=== PATIENT | female | born 1970 | race Hispanic/Latino ===

== ENCOUNTER → 2016-06-02 | Outpatient (CLI) | payer OTHER ==
[2016-06-02 10:00] LABS: INR 0.89
[2016-06-02 10:06] LABS: BLOOD UREA NITROGEN 15 MG/DL (7-18); CREATININE FOR GFR 0.65 MG/DL (0.55-1.02); GLOMERULAR FILTRATION RATE > 60.0 (>58)
== END ==
LOC: M LAB 08:52
PROVIDERS: ATTEND Physical Medicine & Rehabilitation
DX: M51.27 Other intervertebral disc displacement, lumbosacral region (principal)

== ENCOUNTER → 2016-12-07 | Outpatient (CLI) | payer OTHER ==
[2016-12-07 13:16] LABS: FREE T4 1.43 NG/DL (0.76-1.46)
== END ==
LOC: M LAB 11:44
PROVIDERS: ATTEND Internal Medicine Endocrinology, Diabetes & Metabolism
DX: E89.0 Postprocedural hypothyroidism (principal)

== ENCOUNTER → 2016-12-07 | Outpatient (CLI) | payer OTHER ==
[2016-12-07 13:07] LABS: BLOOD UREA NITROGEN 12 MG/DL (7-18); CREATININE FOR GFR 0.73 MG/DL (0.55-1.02); GLOMERULAR FILTRATION RATE > 60.0 (>58)
== END ==
LOC: M LAB 11:41
PROVIDERS: ATTEND Physical Medicine & Rehabilitation
DX: M47.817 Spondylosis without myelopathy or radiculopathy, lumbosacral region (principal)

== ENCOUNTER → 2017-04-28 | Outpatient (REF) | payer OTHER ==
[2017-04-28 12:33] LABS: BLOOD UREA NITROGEN 14 MG/DL (7-18); CREATININE FOR GFR 0.75 MG/DL (0.55-1.02); GLOMERULAR FILTRATION RATE > 60.0 (>58)
== END ==
LOC: M LABDRAW1 09:33
PROVIDERS: ATTEND Physical Medicine & Rehabilitation
DX: M25.551 Pain in right hip (principal)

== ENCOUNTER → 2017-07-22 | Outpatient (REF) | payer OTHER ==
[2017-07-22 15:36] LABS: PLATELET COUNT, AUTOMATED 298 10^3/uL (150-450)
[2017-07-22 15:48] LABS: INR 1.01; PROTHROMBIN TIME 13.4 SECONDS (12.4-14.5)
[2017-07-22 15:49] LABS: PARTIAL THROMBOPLASTIN TIME 27.7 SECONDS (26.8-37.9)
== END ==
LOC: M LABDRAW1 14:24
DX: Z01.812 Encounter for preprocedural laboratory examination (principal)

== ENCOUNTER → 2017-12-09 | Outpatient (REF) | payer OTHER ==
[2017-12-09 13:01] LABS: THYROID STIMULATING HORMONE 0.292 uIU/ML (0.358-3.740)
[2017-12-09 13:01] LABS: FREE T4 1.08 NG/DL (0.76-1.46)
== END ==
LOC: M LABDRAW1 10:39
DX: E89.0 Postprocedural hypothyroidism (principal)

== ENCOUNTER → 2018-03-01 | Outpatient (REF) | payer OTHER ==
[2018-03-01 17:03] LABS: FREE T4 1.09 NG/DL (0.76-1.46)
== END ==
LOC: M LABDRAW1 13:42
DX: E89.0 Postprocedural hypothyroidism (principal)
CPT/HCPCS: 84443

== ENCOUNTER → 2018-08-15 | Outpatient (CLI) | payer OTHER ==
[2018-08-18 14:19] LABS: HPV LOW VOL RFLX Positive (Negative)
== END ==
LOC: M SMT 09:59
PROVIDERS: ATTEND Obstetrics & Gynecology
DX: Z80.49 Family history of malignant neoplasm of other genital organs (principal)
CPT/HCPCS: 36415; 87624; G0123

== ENCOUNTER → 2018-08-17 | Outpatient (CLI) | payer OTHER ==
--- NOTE | 2018-08-17 16:04 | REP ---
CERVICAL SPINE, NINE VIEWS: HISTORY: Neck pain. The cervical spine is visualized from C1 to the C6-7 level in the lateral radiographs. There is no acute fracture or subluxation. The C3-4 through C5-6 intervertebral discs are decreased in height consistent with disc degeneration. Osteophytes are present on C4 through C6. There is narrowing of the right C5 and left C4 and C5 neural foramina secondary to uncinate process hypertrophy. IMPRESSION: Degenerative change as described above. Electronically Signed by Hemant Jesus MD 08/17/2018 04:06 P
== END ==
LOC: M LRY 15:16
PROVIDERS: ATTEND Nurse Practitioner Family
DX: M50.31 Other cervical disc degeneration, high cervical region (principal); M50.321 Other cervical disc degeneration at C4-C5 level; M50.322 Other cervical disc degeneration at C5-C6 level; M25.78 Osteophyte, vertebrae

== ENCOUNTER → 2018-08-17 | Outpatient (REF) | payer OTHER ==
[2018-08-17 12:01] LABS: HEMATOCRIT 41.5 % (36.0-47.0); HEMOGLOBIN 13.2 g/dl (12.0-15.5); MEAN CORPUSCULAR HEMOGLOBIN 29.5 pg (27.0-33.0); MEAN CORPUSCULAR HGB CONC 31.8 g/dl (32.0-36.5); MEAN CORPUSCULAR VOLUME 92.8 fl (80.0-96.0); PLATELET COUNT, AUTOMATED 308 10^3/uL (150-450); RED BLOOD COUNT 4.47 10^6/uL (4.00-5.40); WHITE BLOOD COUNT 6.1 10^3/uL (4.0-10.0)
[2018-08-17 12:38] LABS: ALBUMIN 3.8 GM/DL (3.2-5.2); ALT/SGPT 15 U/L (12-78); BILIRUBIN,TOTAL 0.4 MG/DL (0.2-1.0); BLOOD UREA NITROGEN 13 MG/DL (7-18); CALCIUM LEVEL 8.6 MG/DL (8.5-10.1); CARBON DIOXIDE LEVEL 28 MEQ/L (21-32); CHLORIDE LEVEL 107 MEQ/L (98-107); CHOLESTEROL LEVEL 220 MG/DL (<200); CHOLESTEROL RISK RATIO 3.333 (<5); CREATININE FOR GFR 0.86 MG/DL (0.55-1.30); GLOMERULAR FILTRATION RATE > 60.0 (>58); GLUCOSE, FASTING 77 MG/DL (70-100); HDL CHOLESTEROL 66 MG/DL (>40); LDL CHOLESTEROL 140 MG/DL (<100); NON-HDL-C 154 MG/DL; POTASSIUM SERUM 4.4 MEQ/L (3.5-5.1); SODIUM LEVEL 141 MEQ/L (136-145); TOTAL PROTEIN 7.2 GM/DL (6.4-8.2); TRIGLYCERIDES LEVEL 68 MG/DL (<150)
== END ==
LOC: M SFHCPLAZ 09:17
PROVIDERS: ATTEND Nurse Practitioner Family
DX: Z00.00 Encounter for general adult medical examination without abnormal findings (principal); Z13.220 Encounter for screening for lipoid disorders; E89.0 Postprocedural hypothyroidism

== ENCOUNTER → 2018-09-12 | Outpatient (REF) | payer OTHER | LOC: M SFHCPLAZ 11:50 | PROVIDERS: ATTEND Nurse Practitioner Family | DX: L02.412 Cutaneous abscess of left axilla (principal) ==

== ENCOUNTER → 2018-09-21 | Outpatient (CLI) | payer OTHER ==
[2018-09-21 20:40] LABS: ALBUMIN 3.6 GM/DL (3.2-5.2); ALT/SGPT 14 U/L (12-78); BILIRUBIN,DIRECT < 0.1 MG/DL (0.0-0.2); BILIRUBIN,TOTAL 0.3 MG/DL (0.2-1.0); TOTAL PROTEIN 7.3 GM/DL (6.4-8.2)
== END ==
LOC: M LRY 15:21
PROVIDERS: ATTEND Podiatrist
DX: Z79.899 Other long term (current) drug therapy (principal)

== ENCOUNTER → 2018-10-11 | Outpatient (CLI) | payer OTHER ==
[2018-10-11 21:04] LABS: FREE T4 1.07 NG/DL (0.76-1.46); THYROID STIMULATING HORMONE 3.98 uIU/ML (0.358-3.740)
== END ==
LOC: M LRY 15:22
PROVIDERS: ATTEND Internal Medicine Endocrinology, Diabetes & Metabolism
DX: E89.0 Postprocedural hypothyroidism (principal)

== ENCOUNTER → 2018-11-30 | Outpatient (CLI) | payer OTHER ==
[2018-11-30 21:19] LABS: ALT/SGPT 17 U/L (12-78)
[2018-11-30 21:20] LABS: ALBUMIN 3.6 GM/DL (3.2-5.2); BILIRUBIN,DIRECT < 0.1 MG/DL (0.0-0.2); BILIRUBIN,TOTAL 0.2 MG/DL (0.2-1.0); TOTAL PROTEIN 6.9 GM/DL (6.4-8.2)
== END ==
LOC: M LRY 14:19
PROVIDERS: ATTEND Podiatrist
DX: Z79.899 Other long term (current) drug therapy (principal)

== ENCOUNTER → 2018-12-01 | Outpatient (CLI) | payer OTHER ==
--- NOTE | 2018-12-12 01:34 | ECWPNPC ---
PATIENT NAME: GLADYS LEBRON : 1970 GENDER: FEMALE VISIT DATE: 12/01/2018 DISCHARGE DATE: 12/01/18 1211 VISIT LOCKED DATE TIME: PHYSICIAN: JEREMY SUAZO MD RESOURCE: JEREMY SUAZO MD REASON FOR APPOINTMENT 1. NECK PAIN HISTORY OF PRESENT ILLNESS PAIN SCREENING: PATIENT HAS A COMPLAINT OF ACUTE OR CHRONIC PAIN :YES 48 YEAR OLD FEMALE PATIENT WITH A HISTORY OF CHRONIC NECK PAIN. THE PATIENT DESCRIBES THE PAIN ACHING, STABBING, SHOOTING, AND CONTINUOUS WITH A PAIN SCORE OF 7-10/10 DEPENDING ON PHYSICAL ACTIVITY. THE PATIENT SAYS HER PAIN STARTS IN HER NECK AREA AND GOES UP INTO HER HEAD CAUSING HEADACHES. THE PATIENT SAYS SHE HAS SOME OCCASIONAL PAIN AND NUMBNESS DOWN HER ARMS WELL. THE PATIENT SAYS HER PAIN HAS BEEN GOING ON FOR ABOUT 6 MONTHS. THE PATIENT SAYS SHE HAS DIFFICULTY DOING DAILY ACTIVITIES SUCH COOKING AND CLEANING DUE TO THIS PAIN. PATIENT DENIES UNEXPLAINABLE WEIGHT LOSS, FEVER, CHILLS, NEW CHANGES ON HER URINARY OR BOWEL CONTROL. FALL RISK SCREENING: SCREENING :NO FALLS REPORTED IN THE LAST YEAR CURRENT MEDICATIONS TAKING DULOXETINE HCL 30 MG CAPSULE DELAYED RELEASE PARTICLES ORAL BID TAKING CYCLOBENZAPRINE HCL 5 MG TABLET ORAL TAKING NAPROSYN 500 MG TABLET 1 TABLET WITH FOOD OR MILK NEEDED ORALLY EVERY 12 HRS TAKING LEVOTHYROXINE SODIUM 112 MCG TABLET ORALLY , NOTES: MANAGED BY ENDOCRINE TAKING TERBINAFINE- ORAL-12 WEEKS 250 MG TABLETS ONE TABLET ORALLY DAILY NOT-TAKING PREMARIN 0.625 MG TABLET ORAL NOT-TAKING TRAMADOL HCL 50 MG TABLET ORAL NOT-TAKING DOXYCYCLINE MONOHYDRATE 100 MG TABLET 1 TABLET ORALLY EVERY 12 HRS MEDICATION LIST REVIEWED AND RECONCILED WITH THE PATIENT PAST MEDICAL HISTORY SPONDYLOLITHESIS SPINAL STENOSIS THYROID CANCER 2008- SX FOR REMOVAL 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 SURGICAL HISTORY THYROIDECTOMY 2008 PARTIAL HYSTERECTOMY- PA 1998 FAMILY HISTORY FATHER: ALIVE 72 YRS, HTN, ARTHRITIS, DIAGNOSED WITH DIABETES MOTHER: ALIVE 71 YRS, HYPOTHYROIDISM, DEPRESSION, HTN SIBLINGS: ALIVE 51 YRS, OBESITY SON(S): ALIVE, ADHD DAUGHTER(S): ALIVE PATERNAL GRAND FATHER: 60 YRS, ALCOHOLISM PATERNAL GRAND MOTHER: 70 YRS, CANCER MATERNAL GRAND FATHER: 70 YRS, TYPE II DIABETES, HTN, MULTIPLE STROKES, DIABETES MATERNAL GRAND MOTHER: 40 YRS, OVARIAN CANCER, 1 SISTER(S) . 2 SON(S) , 2 DAUGHTER(S) . PT REPORTS STRONG FAMILY HISTORY OF COLON CANCER. \NPT REPORTS STRONG FAMIY HISTORY OF DM ON MOTHER SIDE. SOCIAL HISTORY GENERAL: TOBACCO USE ARE YOU A:CURRENT SMOKER HOW OFTEN DO YOU SMOKE CIGARETTES?EVERY DAY HOW SOON AFTER YOU WAKE UP DO YOU SMOKE YOUR FIRST CIGARETTE?AFTER 60 MIN HOW MANY CIGARETTES A DAY DO YOU SMOKE?5 OR LESS ARE YOU INTERESTED IN QUITTING?READY TO QUIT PATIENT COUNSELED ON THE DANGERS OF TOBACCO USE AND URGED TO QUIT:08/15/2018 COUNSELED THE PATIENT ON TOBACCO USE, CESSATION [id number]/02/2019 PREVIOUS QUIT ATTEMPTS?YES, WITHIN THE LAST 6 MONTHS. HIV / HEP-C SCREENING HIV TEST OFFERED TO PATIENT:YES DATE OFFERED:08/15/2018 TEST ACCEPTED:NO HEP-C TEST OFFERED TO PATIENT:YES DATE OFFERED:08/15/2018 REASON:PATIENT DECLINED TEST ACCEPTED:NO REASON:PATIENT DECLINED BROCHURE PROVIDED TO PATIENTYES OTHERS AT HOME: . EDUCATION LEVEL OF EDUCATION:COLLEGE DIET: REGULAR. LANGUAGE LANGUAGES SPOKEN:BOTH SLOVENIAN AND ENGLISH DOMESTIC VIOLENCE DO YOU FEEL SAFE IN YOUR ENVIRONMENT?YES RECREATIONAL DRUG USE DRUG USE?NO LEARNING BARRIERS / SPECIAL NEEDS BARRIERS TO LEARNING?NO HEARING IMPAIRED?NO VISION IMPAIRED?YES COGNITIVELY IMPAIRED?NO :CORRECTIVE LENSES READINESS TO LEARN?YES LEARNING PREFERENCES?NO LEARNING CAPABILITIES PRESENT?YES PAIN CLINIC PFS, CLERGY, PUBLIC HEALTH REFERRALS HAS THE PATIENT BEEN EDUCATED REGARDING HIS/HER PLAN OF CARE?YES HAS THE PATIENT BEEN EDUCATED REGARDING PAIN, THE RISK FOR PAIN, THE IMPORTANCE OF EFFECTIVE PAIN MANAGEMENT, AND THE PAIN ASSESSMENT PROCESS?YES LATEX QUESTIONNAIRE LATEX ALLERGY : HAVE YOU EVER DEVELOPED ANY TYPE OF REACTION AFTER HANDLING LATEX PRODUCTS SUCH RUBBER GLOVES, CONDOMS, DIAPHRAGMS, BALLOONS, SOCKS, OR UNDERWEAR?NO LATEX ALLERGY : HAVE YOU EVER DEVELOPED ANY TYPE OF REACTION DURING OR AFTER DENTAL APPOINTMENT, VAGINAL/RECTAL EXAMINATION, SURGICAL PROCEDURE, OR ANY OTHER EXPOSURE?NO DATE ASKED : 08/15/2018 LATEX RISK : HAVE YOU EVER HAD ANY DIFFICULTY BREATHING OR HIVES AFTER EATING OR HANDLING ANY FRUITS, OR VEGETABLES; SUCH KIWI, BANANAS, STONE FRUITS, OR CHESTNUTSNO LATEX RISK : DO YOU HAVE A PREVIOUS PERSONAL HISTORY OF MORE THAN NINE SURGERIES, SPINA BIFIDA, OR REPEATED CATHERIZATIONS? NO LATEX RISK : ARE YOU FREQUENTLY EXPOSED TO LATEX PRODUCTS IN YOUR OCCUPATION?NO CAFFEINE CAFFEINE USE?YES 2 CUPS COFFEE DAILY ADVANCE DIRECTIVE ADVANCE DIRECTIVE DISCUSSED WITH PATIENT:YES PT DOES NOT HAVE HCP AND DECLINES ASSISTANCE WITH FORM TODAY. 12/01/18 BV ISLAM [id number] RELIGION MARITAL STATUS: . OCCUPATION: FT [employer]. SEXUAL HX HAD SEX IN THE LAST 12 MONTHS (VAGINAL, ORAL, OR ANAL)?YES WITHMEN ONLY PREVENTION STRATEGIES DISCUSSED:OTHER USE PROTECTION?NO LMP:1998 HAVE YOU EVER HAD AN STD?NO REVIEWED WITH PT 12/01/18 1116 BV. HOSPITALIZATION/MAJOR DIAGNOSTIC PROCEDURE THYROID ISSUES PRIOR TO SX REVIEW OF SYSTEMS REVIEWED BY: PROVIDER: JEREMY SUAZO MD . CONSTITUTIONAL: ANY CHANGE IN YOUR MEDICAL CONDITION? NO . CHILLS NO . FEVER NO . INFECTION: DO YOU HAVE NEW INFECTIONS? NO . DO YOU HAVE HISTORY OF MRSA? NO . MUSCULOSKELETAL: ANY NEW PATTERNS OF PAIN OR NUMBNESS? NO . SYTEMIC LUPUS NO . GASTROENTEROLOGY: ANY NEW CHANGE IN BOWEL CONTROL? NO . BARRETTS ESOPHAGUS NO . CIRRHOSIS NO . HEPATITIS NO . LIVER FAILURE NO . ACID REFLUX NO . UNEXPLAINED WEIGHT LOSS NO . GENITOURINARY: ANY NEW CHANGE IN BLADDER CONTROL? NO . IS THERE A CHANCE YOU COULD BE ? NO . HEMATOLOGY/LYMPH: DO YOU TAKE ANY BLOOD THINNERS? (FOR EXAMPLE- COUMADIN, PLAVIX, AGGRENOX, PLATEL, PRADAXA, OR XARELTO) NO . WHEN WAS YOUR LAST DOSE? DATE: TIME: . LOW PLATELET COUNT NO . SICKLE CELL DISEASE NO . VON WILLIEBRANDS NO . FACTOR V LEIDEN NO . THALLASEMIA NO . ANEMIA NO . EASY BRUISING NO . NEUROLOGY: HAVE YOU FALLEN IN THE PAST 12 MONTHS? YES, PT HAD A FALL IN JUNE DUE TO WEAKNESS, FELL ONTO LEFT KNEE AND WAS TREATED AT URGENT CARE . ANY NEW EXTREMITY NUMBNESS OR WEAKNESS? NO . HEAD INJURY NO . DEMENTIA NO . CEREBRAL PALSY NO . MULTIPLE SCLEROSIS NO . DIZZINESS NO . HEADACHE PT COMPLAINS OF CONSTANT HEADACHES THAT VARY IN INTENSITY, AND PROGRESS TO MIGRAINES AT LEAST 1-2 TIMES A WEEK . STROKES NO . VERTIGO OCCASIONALLY, USUALLY WHEN LYING DOWN AND TURNING HEAD TO THE SIDE . CARDIOLOGY: DO YOU HAVE A PACEMAKER OR DEFIBRILLATOR? NO . ANGINA NO . HEART ATTACK NO . HEART SURGERY NO . CONGESTIVE HEART FAILURE/FLUID OVERLOAD NO . CHEST PAIN NO . HIGH BLOOD PRESSURE NO . RESPIRATORY: HAVE YOU BEEN SICK IN THE PAST WEEK? NO . FEVER NO . FLU LIKE SYMPTOMS? NO . CPAP NO . BYPAP NO . ASTHMA NO . EMPHYSEMA NO . CHRONIC LUNG DISEASES NO . SHORTNESS OF BREATH ON EXERTION NO . COUGH NO . SNORING NO . INTEGUMENTARY: DO YOU HAVE ANY RASHES OR OPEN SORES? NO . ALLERGIC/IMMUNO: ARE YOU ALLERGIC TO IV DYE? NO . ANY NEW ALLERGIES? NO . PSYCHIATRIC: DO YOU HAVE THOUGHTS OF HURTING YOURSELF OR SOMEONE ELSE? NO . ARE YOU ABUSED, NEGLECTED, OR IN AN UNSAFE ENVIRONMENT? NO . ENDOCRINOLOGY: ARE YOU DIABETIC? NO . THYROID DISORDER HYPOTHYROID . OTHER: DO YOU NEED ANY PRESCRIPTIONS? NO . IF YES, PLEASE LIST: ____ . ANY NEW PROBLEMS WITH YOUR MEDICATIONS? NO . WHEN DID YOU LAST EAT? ____ . WHEN DID YOU LAST DRINK? ____ . WHAT DID YOU LAST DRINK? ____ . NAME OF PERSON DRIVING YOU HOME? ____ . DO YOU HAVE ANY OTHER QUESTIONS OR CONCERNS NO . VITAL SIGNS WT 230.8 LBS, HT 64 IN, BMI 39.61 INDEX, BP 142/88 MM HG, HR 75 /MIN, RR 18 /MIN, TEMP 97.2 F, OXYGEN SAT % 98%, NA INITIALS SC 10:51, REVIEWED BY: BV. EXAMINATION GENERAL EXAMINATION: PATIENT IS ALERT O X 3 AND COOPERATIVE. LUNGS CLEAR, TO AUSCULTATION. HEART: NO MURMURS OR GALLOPS; FACIAL CRANIAL NERVES ARE GROSSLY NORMAL. GOOD SYMMETRY OF FACIAL MUSCLE MOVEMENT. NORMAL VISUAL MARADIAGA. PATIENT IS LIMPING FROM HER LEFT LEG. PATIENT CAN ABDUCT THE UPPER EXTREMITIES TO ABOVE THE SHOULDER LEVEL. RIGHT ARM IS WEAKER AT EXTENSION AND FLEXION. HAND NEW ACCOUNTS BANKING REPRESENTATIVE OVER THE RIGHT SIDE IS REDUCED. PAIN INCREASES OVER THE CERVICAL FACET JOINTS WITH EXTENSION AND LATERAL ROTATION. X-RAY OF THE CERVICAL SPINE DONE ON 08/17/2018 SHOWS DEGENERATIVE CHANGES. ASSESSMENTS NECK PAIN - M54.2 (PRIMARY) SPONDYLOSIS OF CERVICAL REGION WITHOUT MYELOPATHY OR RADICULOPATHY - M47.812 TREATMENT NECK PAIN CLINICAL NOTES: WE DISCUSSED SEVERAL ISSUES WITH MRS. LEBRON'S PAIN MANAGEMENT CASE. THE CERVICAL X-RAY IS NOT GIVING ME ENOUGH INFORMATION AND I WOULD LIKE TO VIEW THE SOFT TISSUES, SO I WILL ORDER A CERVICAL MRI TO GET A BETTER IDEA OF WHERE THE PATIENT'S PAIN IS COMING FROM. THE PATIENT WILL FOLLOW UP IN 2 WEEKS TO REVIEW THE MRI. INSTRUCTIONS WERE GIVEN, QUESTIONS WERE ANSWERED, PATIENT REPORTS UNDERSTANDING AND AGREES WITH THE PLAN. I, JAMIL PELAYO, DOCUMENTED THE ABOVE INFORMATION ACTING A SCRIBE FOR DR. SUAZO. I HAVE REVIEWED THE ABOVE DOCUMENT, WRITTEN BY JAMIL LUGOIBJemma AND I VERIFY THAT IT IS ACCURATE. DEAR JUDI TURK, INFORMATION TECHNOLOGY SECURITY ANALYST-:THANK YOU FOR YOUR KIND REFERRAL OF MRS. LEBRON. IF YOU WANT TO DISCUSS HER CASE WITH ME PLEASE CALL ME AT THE PAIN CENTER AT [phone]. SINCERELY,JEREMY SUAZO, [facility] . PROCEDURE CODES FA211 ESTABILISHED PATIENT [facility] FACILITY CHARGE G8427 CURRENT MEDS W/DOSAGES DOCUMENTED G8730 PAIN ASSESS POS TOOL F/U PLAN DOC DISPOSITION & COMMUNICATION FOLLOW UP 2 WEEKS- OKAY TO OVERBOOK (REASON: NECK PAIN- REVIEW MRI) ELECTRONICALLY SIGNED BY JEREMY SUAZO MD, MD ON 12/11/2018 AT 04:13 PM EDT DISCLAIMER : THIS IS A VISIT SUMMARY EXTRACTED FROM THE [employer] CHART. IT IS NOT A COPY OF THE [employer] PROGRESS NOTE. MTDD
== END ==
LOC: M PAIN 11:00
PROVIDERS: ATTEND Anesthesiology
DX: M54.2 Cervicalgia (principal); M47.812 Spondylosis without myelopathy or radiculopathy, cervical region; G43.909 Migraine, unspecified, not intractable, without status migrainosus; M17.12 Unilateral primary osteoarthritis, left knee; E89.0 Postprocedural hypothyroidism; M54.41 Lumbago with sciatica, right side; M54.42 Lumbago with sciatica, left side; F17.210 Nicotine dependence, cigarettes, uncomplicated; Z79.899 Other long term (current) drug therapy

== ENCOUNTER → 2018-12-11 | Outpatient (CLI) | payer OTHER ==
--- NOTE | 2018-12-12 08:51 | ECGEPIP ---
[facility] Test Date: 2018-12-11 Pat Name: GLADYS LEBRON Department: Room: - Gender: Female Development Technician: RUBÉN : 1970 Requested By: JOSSIE VASQUES [facility] Order Number: [id number] Reading MD: Puma Silveira Measurements Intervals [place] Rate: 67 P: 10 DE: 147 QRS: -20 QRSD: 102 T: 20 QT: 390 QTc: 413 Interpretive Statements SINUS RHYTHM Comparison tracing not on file Electronically Signed on 12-12-2018 8:50:54 EDT by Puma Silveira
== END ==
LOC: M LAB 11:40 → M EKG 11:40
PROVIDERS: ATTEND Physical Medicine & Rehabilitation
DX: I25.5 Ischemic cardiomyopathy (principal)

== ENCOUNTER → 2018-12-13 | Outpatient (CLI) | payer OTHER ==
--- NOTE | 2018-12-13 18:54 | REP ---
MRI cervical spine without contrast: History: Neck pain. Headache and pain radiating into bilateral arms and hands. Comparison cervical spine radiographs are from August 17, 2018. Technique: Sagittal and axial T1 and T2-weighted scans are acquired in the usual fashion with and without fat saturation. Sequences include spin echo, turbo spin-echo, and STIR imaging sequences. MRI findings: There is straightening of the normal cervical lordosis. Cervical vertebral body heights are preserved. Cortical and medullary bone signal intensity are normal. No bony destructive lesion is seen. Craniocervical junction is unremarkable. Cervical cord is normal in coarse, caliber and signal intensity on T1 and T2-weighted scans. Incidental note is made of a central disc protrusion in the upper thoracic spine at the T3-4 level. This is at the bottom of the imaging field of view on sagittal images. In the cervical spine at the C2-3 level, axial and sagittal images show minimal central disc bulging. No other finding. At C3-4, there is mild degenerative disc narrowing and diffuse disc bulging effacing the ventral subarachnoid space. Early bilateral uncovertebral spurring is seen but no significant foraminal encroachment is appreciated. At C4-5, there is degenerative disc narrowing and posterior osteophytic ridging with diffuse disc bulging. There is uncovertebral spurring noted on parasagittal images bilaterally, right a little more so than left. The posterior osteophytic ridging and disc bulging indents the ventral margin of the thecal sac. No spinal stenosis is seen. At C5-6, there is degenerative narrowing of the disc. Posterior osteophytic ridging and diffuse disc bulging are present. There is uncovertebral spurring on the left producing foraminal encroachment. Minimal uncovertebral spurring is seen on the right. No spinal stenosis seen. At C6-7, there is diffuse disc bulging indenting the ventral margin of the thecal sac. Minimal uncovertebral spurring is seen. No neural foraminal narrowing. No spinal stenosis. At C7-T1, there is no significant finding. Impression: Degenerative spondylosis changes. Left-sided foraminal encroachment seen at C5-6. Mild bilateral uncovertebral spurring at C4-5. Electronically Signed by Perez Beltrán MD 12/13/2018 07:28 P
== END ==
LOC: M RAD 15:45
PROVIDERS: ATTEND Anesthesiology
DX: M54.2 Cervicalgia (principal)

== ENCOUNTER → 2018-12-15 | Outpatient (CLI) | payer OTHER ==
--- NOTE | 2018-12-27 00:41 | ECWPNPC ---
PATIENT NAME: GLADYS LEBRON : 1970 GENDER: FEMALE VISIT DATE: 12/15/2018 DISCHARGE DATE: 12/15/18 1629 VISIT LOCKED DATE TIME: PHYSICIAN: JEREMY SUAZO MD RESOURCE: JEREMY SUAZO MD REASON FOR APPOINTMENT 1. REVIEW MRI HISTORY OF PRESENT ILLNESS HISTORY OF PRESENT ILLNESS: PAIN THE PATIENT DESCRIBES THE PAIN... 48 YEAR OLD FEMALE PATIENT WITH A HISTORY OF CHRONIC NECK PAIN. THE PATIENT DESCRIBES THE PAIN ACHING, STABBING, SHOOTING, SHARP, AND CONTINUOUS WITH A PAIN SCORE OF 7-10/10 DEPENDING ON PHYSICAL ACTIVITY. THE PATIENT STATES HER PAIN BEGINS IN HER NECK AND RADIATES UP TOWARDS HER HEAD AND DOWN HER ARMS. THE PATIENT SAYS SHE HAS BEEN SUFFERING FROM THIS PAIN FOR MANY YEARS. PATIENT DENIES UNEXPLAINABLE WEIGHT LOSS, FEVER, CHILLS, NEW CHANGES ON HER URINARY OR BOWEL CONTROL. FALL RISK SCREENING: SCREENING :NO FALLS REPORTED IN THE LAST YEAR CURRENT MEDICATIONS TAKING LEVOTHYROXINE SODIUM 112 MCG TABLET ORALLY , NOTES: MANAGED BY ENDOCRINE TAKING TERBINAFINE- ORAL-12 WEEKS 250 MG TABLETS ONE TABLET ORALLY DAILY NOT-TAKING DULOXETINE HCL 30 MG CAPSULE DELAYED RELEASE PARTICLES ORAL BID NOT-TAKING NAPROSYN 500 MG TABLET 1 TABLET WITH FOOD OR MILK NEEDED ORALLY EVERY 12 HRS NOT-TAKING TRAMADOL HCL 50 MG TABLET ORAL DISCONTINUED CYCLOBENZAPRINE HCL 5 MG TABLET ORAL DISCONTINUED PREMARIN 0.625 MG TABLET ORAL DISCONTINUED DOXYCYCLINE MONOHYDRATE 100 MG TABLET 1 TABLET ORALLY EVERY 12 HRS MEDICATION LIST REVIEWED AND RECONCILED WITH THE PATIENT PAST MEDICAL HISTORY SPONDYLOLITHESIS SPINAL STENOSIS THYROID CANCER 2008- SX FOR REMOVAL 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 SURGICAL HISTORY THYROIDECTOMY 2008 PARTIAL HYSTERECTOMY- PA 1998 FAMILY HISTORY FATHER: ALIVE 72 YRS, HTN, ARTHRITIS, DIAGNOSED WITH DIABETES MOTHER: ALIVE 71 YRS, HYPOTHYROIDISM, DEPRESSION, HTN SIBLINGS: ALIVE 51 YRS, OBESITY SON(S): ALIVE, ADHD DAUGHTER(S): ALIVE PATERNAL GRAND FATHER: 60 YRS, ALCOHOLISM PATERNAL GRAND MOTHER: 70 YRS, CANCER MATERNAL GRAND FATHER: 70 YRS, TYPE II DIABETES, HTN, MULTIPLE STROKES, DIABETES MATERNAL GRAND MOTHER: 40 YRS, OVARIAN CANCER, 1 SISTER(S) . 2 SON(S) , 2 DAUGHTER(S) . PT REPORTS STRONG FAMILY HISTORY OF COLON CANCER. \NPT REPORTS STRONG FAMIY HISTORY OF DM ON MOTHER SIDE. SOCIAL HISTORY GENERAL: TOBACCO USE ARE YOU A:CURRENT SMOKER ARE YOU INTERESTED IN QUITTING?READY TO QUIT PREVIOUS QUIT ATTEMPTS?YES, WITHIN THE LAST 6 MONTHS. COUNSELED THE PATIENT ON TOBACCO USE, CESSATION [id number]/02/2019 HOW MANY CIGARETTES A DAY DO YOU SMOKE?5 OR LESS HOW SOON AFTER YOU WAKE UP DO YOU SMOKE YOUR FIRST CIGARETTE?AFTER 60 MIN HOW OFTEN DO YOU SMOKE CIGARETTES?EVERY DAY PATIENT COUNSELED ON THE DANGERS OF TOBACCO USE AND URGED TO QUIT:12/15/2018 HIV / HEP-C SCREENING HIV TEST OFFERED TO PATIENT:YES DATE OFFERED:08/15/2018 TEST ACCEPTED:NO HEP-C TEST OFFERED TO PATIENT:YES DATE OFFERED:08/15/2018 REASON:PATIENT DECLINED TEST ACCEPTED:NO REASON:PATIENT DECLINED BROCHURE PROVIDED TO PATIENTYES OTHERS AT HOME: . EDUCATION LEVEL OF EDUCATION:COLLEGE DIET: REGULAR. LANGUAGE LANGUAGES SPOKEN:BOTH FAROESE AND [place]MAN ISLANDER DOMESTIC VIOLENCE DO YOU FEEL SAFE IN YOUR ENVIRONMENT?YES RECREATIONAL DRUG USE DRUG USE?NO LEARNING BARRIERS / SPECIAL NEEDS BARRIERS TO LEARNING?NO HEARING IMPAIRED?NO VISION IMPAIRED?YES COGNITIVELY IMPAIRED?NO :CORRECTIVE LENSES READINESS TO LEARN?YES LEARNING PREFERENCES?NO LEARNING CAPABILITIES PRESENT?YES PAIN CLINIC PFS, CLERGY, PUBLIC HEALTH REFERRALS HAS THE PATIENT BEEN EDUCATED REGARDING HIS/HER PLAN OF CARE?YES HAS THE PATIENT BEEN EDUCATED REGARDING PAIN, THE RISK FOR PAIN, THE IMPORTANCE OF EFFECTIVE PAIN MANAGEMENT, AND THE PAIN ASSESSMENT PROCESS?YES LATEX QUESTIONNAIRE LATEX ALLERGY : HAVE YOU EVER DEVELOPED ANY TYPE OF REACTION AFTER HANDLING LATEX PRODUCTS SUCH RUBBER GLOVES, CONDOMS, DIAPHRAGMS, BALLOONS, SOCKS, OR UNDERWEAR?NO LATEX ALLERGY : HAVE YOU EVER DEVELOPED ANY TYPE OF REACTION DURING OR AFTER DENTAL APPOINTMENT, VAGINAL/RECTAL EXAMINATION, SURGICAL PROCEDURE, OR ANY OTHER EXPOSURE?NO LATEX RISK : HAVE YOU EVER HAD ANY DIFFICULTY BREATHING OR HIVES AFTER EATING OR HANDLING ANY FRUITS, OR VEGETABLES; SUCH KIWI, BANANAS, STONE FRUITS, OR CHESTNUTSNO LATEX RISK : DO YOU HAVE A PREVIOUS PERSONAL HISTORY OF MORE THAN NINE SURGERIES, SPINA BIFIDA, OR REPEATED CATHERIZATIONS? NO LATEX RISK : ARE YOU FREQUENTLY EXPOSED TO LATEX PRODUCTS IN YOUR OCCUPATION?NO DATE ASKED : 12/15/2018 CAFFEINE CAFFEINE USE?YES 2 CUPS COFFEE DAILY ADVANCE DIRECTIVE ADVANCE DIRECTIVE DISCUSSED WITH PATIENT:YES PT DOES NOT HAVE HCP AND DECLINES ASSISTANCE WITH FORM TODAY. 12/01/18 BV SIKHISM [id number] [facility] MARITAL STATUS: . OCCUPATION: FT [employer]. SEXUAL HX HAD SEX IN THE LAST 12 MONTHS (VAGINAL, ORAL, OR ANAL)?YES WITHMEN ONLY PREVENTION STRATEGIES DISCUSSED:OTHER USE PROTECTION?NO LMP:1998 HAVE YOU EVER HAD AN STD?NO REVIEWED WITH PT 12/01/18 1116 BV. HOSPITALIZATION/MAJOR DIAGNOSTIC PROCEDURE THYROID ISSUES PRIOR TO SX REVIEW OF SYSTEMS REVIEWED BY: PROVIDER: JEREMY SUAZO MD . CONSTITUTIONAL: ANY CHANGE IN YOUR MEDICAL CONDITION? NO . CHILLS NO . FEVER NO . INFECTION: DO YOU HAVE NEW INFECTIONS? NO . DO YOU HAVE HISTORY OF MRSA? NO . MUSCULOSKELETAL: ANY NEW PATTERNS OF PAIN OR NUMBNESS? YES . GASTROENTEROLOGY: ANY NEW CHANGE IN BOWEL CONTROL? NO . GENITOURINARY: ANY NEW CHANGE IN BLADDER CONTROL? NO . IS THERE A CHANCE YOU COULD BE ? NO . HEMATOLOGY/LYMPH: DO YOU TAKE ANY BLOOD THINNERS? (FOR EXAMPLE- COUMADIN, PLAVIX, AGGRENOX, PLATEL, PRADAXA, OR XARELTO) NO . WHEN WAS YOUR LAST DOSE? DATE: TIME: . NEUROLOGY: HAVE YOU FALLEN IN THE PAST 12 MONTHS? YES . ANY NEW EXTREMITY NUMBNESS OR WEAKNESS? YES . CARDIOLOGY: DO YOU HAVE A PACEMAKER OR DEFIBRILLATOR? NO . RESPIRATORY: HAVE YOU BEEN SICK IN THE PAST WEEK? NO . FEVER NO . FLU LIKE SYMPTOMS? NO . COUGH NO . INTEGUMENTARY: DO YOU HAVE ANY RASHES OR OPEN SORES? NO . ALLERGIC/IMMUNO: ARE YOU ALLERGIC TO IV DYE? NO . ANY NEW ALLERGIES? NO . PSYCHIATRIC: DO YOU HAVE THOUGHTS OF HURTING YOURSELF OR SOMEONE ELSE? NO . ARE YOU ABUSED, NEGLECTED, OR IN AN UNSAFE ENVIRONMENT? NO . ENDOCRINOLOGY: ARE YOU DIABETIC? NO . OTHER: DO YOU NEED ANY PRESCRIPTIONS? NO . IF YES, PLEASE LIST: ____ . ANY NEW PROBLEMS WITH YOUR MEDICATIONS? NO . WHEN DID YOU LAST EAT? ____ . WHEN DID YOU LAST DRINK? ____ . WHAT DID YOU LAST DRINK? ____ . NAME OF PERSON DRIVING YOU HOME? ____ . DO YOU HAVE ANY OTHER QUESTIONS OR CONCERNS NO . VITAL SIGNS WT 231.2 LBS, HT 64 IN, BMI 39.68 INDEX, BP 138/65 MM HG, HR 91 /MIN, RR 18 /MIN, TEMP 97.5 F, OXYGEN SAT % 98%, NA INITIALS AW 1439. EXAMINATION GENERAL EXAMINATION: PATIENT IS ALERT O X 3 AND COOPERATIVE. TENDERNESS IN THE NECK AREA. PAIN INCREASES OVER THE CERVICAL FACET JOINTS WITH EXTENSION AND LATERAL ROTATION OF THE NECK. ASSESSMENTS CERVICAL PAIN - M54.2 (PRIMARY) SPONDYLOSIS OF CERVICAL REGION WITHOUT MYELOPATHY OR RADICULOPATHY - M47.812 TREATMENT CERVICAL PAIN CLINICAL NOTES: WE DISCUSSED SEVERAL ISSUES WITH MS. LEBRON'S PAIN MANAGEMENT CASE. DUE TO THE CERVICAL SPONDYLOSIS, I WOULD LIKE TO MOVE FORWARD WITH A BILATERAL C2-C3, C3-C4, C4-C5 THERAPEUTIC FACET BLOCK AT THIS TIME. THE PATIENT WOULD LIKE TO MOVE FORWARD WITH IV SEDATION DUE TO DISCOMFORT, PAIN, AND ANXIETY ASSOCIATED WITH THE PROCEDURE. WE DISCUSSED THE BENEFITS, RISKS, AND ALTERNATIVES OF THE INJECTION AND THE PATIENT WOULD LIKE TO PROCEED. I AM LOOKING FOR LONG LASTING PAIN RELIEF FOR THE PATIENT WITH THIS PROCEDURE. THE PATIENT WILL FOLLOW UP IN SEVERAL WEEKS FOR HER PRE-SEDATE FOLLOW-UP APPOINTMENT. INSTRUCTIONS WERE GIVEN, QUESTIONS WERE ANSWERED, PATIENT REPORTS UNDERSTANDING AND AGREES WITH THE PLAN. I, IVORY FERRERA, DOCUMENTED THE ABOVE INFORMATION ACTING A SCRIBE FOR DR. SUAZO. I HAVE REVIEWED THE ABOVE DOCUMENT, WRITTEN BY IVORY FLORENCE AND I VERIFY THAT IT IS ACCURATE. . OTHERS NOTES: OPTIONS: FACET JOINT INJECTION MATERIAL WAS PRINTED. PROCEDURE CODES G8427 CURRENT MEDS W/DOSAGES DOCUMENTED G8730 PAIN ASSESS POS TOOL F/U PLAN DOC DISPOSITION & COMMUNICATION FOLLOW UP REASON: ELIZABETH C2-C3, C3-C4, C4-C5 THERAP FB WITH IV SEDATE ELECTRONICALLY SIGNED BY JEREMY SUAZO MD, MD ON 12/26/2018 AT 01:38 PM EDT DISCLAIMER : THIS IS A VISIT SUMMARY EXTRACTED FROM THE [employer] CHART. IT IS NOT A COPY OF THE [employer] PROGRESS NOTE. MTDD
== END ==
LOC: M PAIN 14:30
PROVIDERS: ATTEND Anesthesiology
DX: M54.2 Cervicalgia (principal); M47.812 Spondylosis without myelopathy or radiculopathy, cervical region; G89.29 Other chronic pain; G43.909 Migraine, unspecified, not intractable, without status migrainosus; E89.0 Postprocedural hypothyroidism; F17.210 Nicotine dependence, cigarettes, uncomplicated; Z79.899 Other long term (current) drug therapy

== ENCOUNTER → 2019-01-17 | Outpatient (CLI) | payer OTHER ==
--- NOTE | 2019-01-31 00:55 | ECWPNPC ---
PATIENT NAME: GLADYS LEBRON : 1970 GENDER: FEMALE VISIT DATE: 01/17/2019 DISCHARGE DATE: 01/17/19 1449 VISIT LOCKED DATE TIME: PHYSICIAN: JEREMY SUAZO MD RESOURCE: JEREMY SUAZO MD REASON FOR APPOINTMENT 1. PRE SEDATE-EXPIRES 9- HISTORY OF PRESENT ILLNESS HISTORY OF PRESENT ILLNESS: PAIN THE PATIENT DESCRIBES THE PAIN... 48 YEAR OLD FEMALE PATIENT WITH A HISTORY OF CHRONIC CERVICAL PAIN. THE PATIENT DESCRIBES THE PAIN ACHING, SHARP, SORE, SHOOTING, DAILY, AND CONTINUOUS WITH A PAIN SCORE OF 8-10/10 DEPENDING ON PHYSICAL ACTIVITY. THE PATIENT STATES HER PAIN BEGINS IN HER NECK WITH RADIATION UP TOWARD HER HEAD AND DOWN HER ARMS WELL. THE PATIENT SAYS SHE HAS BEEN SUFFERING FROM THIS PAIN FOR A LONG TIME. THE PATIENT MENTIONS SHE ALSO EXPERIENCES LOW BACK AND HIP PAIN WHILE SHE IS SITTING FOR SOME TIME. PATIENT DENIES UNEXPLAINABLE WEIGHT LOSS, FEVER, CHILLS, NEW CHANGES ON HER URINARY OR BOWEL CONTROL. FALL RISK SCREENING: SCREENING :NO FALLS REPORTED IN THE LAST YEAR CURRENT MEDICATIONS TAKING LEVOTHYROXINE SODIUM 112 MCG TABLET ORALLY , NOTES: MANAGED BY ENDOCRINE TAKING DULOXETINE HCL 30 MG CAPSULE DELAYED RELEASE PARTICLES ORAL BID TAKING NAPROSYN 500 MG TABLET 1 TABLET WITH FOOD OR MILK NEEDED ORALLY EVERY 12 HRS DISCONTINUED TERBINAFINE- ORAL-12 WEEKS 250 MG TABLETS ONE TABLET ORALLY DAILY DISCONTINUED TRAMADOL HCL 50 MG TABLET ORAL MEDICATION LIST REVIEWED AND RECONCILED WITH THE PATIENT PAST MEDICAL HISTORY SPONDYLOLITHESIS SPINAL STENOSIS THYROID CANCER 2008- SX FOR REMOVAL 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 SURGICAL HISTORY THYROIDECTOMY 2008 PARTIAL HYSTERECTOMY- PA 1998 FAMILY HISTORY FATHER: ALIVE 72 YRS, HTN, ARTHRITIS, DIAGNOSED WITH DIABETES MOTHER: ALIVE 71 YRS, HYPOTHYROIDISM, DEPRESSION, HTN SIBLINGS: ALIVE 51 YRS, OBESITY SON(S): ALIVE, ADHD DAUGHTER(S): ALIVE PATERNAL GRAND FATHER: 60 YRS, ALCOHOLISM PATERNAL GRAND MOTHER: 70 YRS, CANCER MATERNAL GRAND FATHER: 70 YRS, TYPE II DIABETES, HTN, MULTIPLE STROKES, DIABETES MATERNAL GRAND MOTHER: 40 YRS, OVARIAN CANCER, 1 SISTER(S) . 2 SON(S) , 2 DAUGHTER(S) . PT REPORTS STRONG FAMILY HISTORY OF COLON CANCER. \NPT REPORTS STRONG FAMIY HISTORY OF DM ON MOTHER SIDE. SOCIAL HISTORY GENERAL: TOBACCO USE ARE YOU A:CURRENT SMOKER ARE YOU INTERESTED IN QUITTING?READY TO QUIT PREVIOUS QUIT ATTEMPTS?YES, WITHIN THE LAST 6 MONTHS. COUNSELED THE PATIENT ON TOBACCO USE, CESSATION [id number]/04/2019 HOW MANY CIGARETTES A DAY DO YOU SMOKE?5 OR LESS HOW SOON AFTER YOU WAKE UP DO YOU SMOKE YOUR FIRST CIGARETTE?AFTER 60 MIN HOW OFTEN DO YOU SMOKE CIGARETTES?EVERY DAY PATIENT COUNSELED ON THE DANGERS OF TOBACCO USE AND URGED TO QUIT:12/15/2018 HIV / HEP-C SCREENING HIV TEST OFFERED TO PATIENT:YES DATE OFFERED:08/15/2018 TEST ACCEPTED:NO HEP-C TEST OFFERED TO PATIENT:YES DATE OFFERED:08/15/2018 REASON:PATIENT DECLINED TEST ACCEPTED:NO REASON:PATIENT DECLINED BROCHURE PROVIDED TO PATIENTYES OTHERS AT HOME: . EDUCATION LEVEL OF EDUCATION:COLLEGE DIET: REGULAR. LANGUAGE LANGUAGES SPOKEN:BOTH PASHTO AND KOREAN DOMESTIC VIOLENCE DO YOU FEEL SAFE IN YOUR ENVIRONMENT?YES RECREATIONAL DRUG USE DRUG USE?NO LEARNING BARRIERS / SPECIAL NEEDS BARRIERS TO LEARNING?NO HEARING IMPAIRED?NO VISION IMPAIRED?YES COGNITIVELY IMPAIRED?NO :CORRECTIVE LENSES READINESS TO LEARN?YES LEARNING PREFERENCES?NO LEARNING CAPABILITIES PRESENT?YES PAIN CLINIC PFS, CLERGY, PUBLIC HEALTH REFERRALS HAS THE PATIENT BEEN EDUCATED REGARDING HIS/HER PLAN OF CARE?YES HAS THE PATIENT BEEN EDUCATED REGARDING PAIN, THE RISK FOR PAIN, THE IMPORTANCE OF EFFECTIVE PAIN MANAGEMENT, AND THE PAIN ASSESSMENT PROCESS?YES LATEX QUESTIONNAIRE LATEX ALLERGY : HAVE YOU EVER DEVELOPED ANY TYPE OF REACTION AFTER HANDLING LATEX PRODUCTS SUCH RUBBER GLOVES, CONDOMS, DIAPHRAGMS, BALLOONS, SOCKS, OR UNDERWEAR?NO LATEX ALLERGY : HAVE YOU EVER DEVELOPED ANY TYPE OF REACTION DURING OR AFTER DENTAL APPOINTMENT, VAGINAL/RECTAL EXAMINATION, SURGICAL PROCEDURE, OR ANY OTHER EXPOSURE?NO DATE ASKED : 12/15/2018 LATEX RISK : HAVE YOU EVER HAD ANY DIFFICULTY BREATHING OR HIVES AFTER EATING OR HANDLING ANY FRUITS, OR VEGETABLES; SUCH KIWI, BANANAS, STONE FRUITS, OR CHESTNUTSNO LATEX RISK : DO YOU HAVE A PREVIOUS PERSONAL HISTORY OF MORE THAN NINE SURGERIES, SPINA BIFIDA, OR REPEATED CATHERIZATIONS? NO LATEX RISK : ARE YOU FREQUENTLY EXPOSED TO LATEX PRODUCTS IN YOUR OCCUPATION?NO CAFFEINE CAFFEINE USE?YES 2 CUPS COFFEE DAILY ADVANCE DIRECTIVE ADVANCE DIRECTIVE DISCUSSED WITH PATIENT:YES PT DOES NOT HAVE HCP AND DECLINES ASSISTANCE WITH FORM TODAY. QUAKER [id number] SHINTO MARITAL STATUS: . OCCUPATION: FT [employer]. SEXUAL HX HAD SEX IN THE LAST 12 MONTHS (VAGINAL, ORAL, OR ANAL)?YES WITHMEN ONLY PREVENTION STRATEGIES DISCUSSED:OTHER USE PROTECTION?NO LMP:1998 HAVE YOU EVER HAD AN STD?NO REVIEWED WITH PT 12/01/18 1116 BV. HOSPITALIZATION/MAJOR DIAGNOSTIC PROCEDURE THYROID ISSUES PRIOR TO SX REVIEW OF SYSTEMS REVIEWED BY: PROVIDER: JEREMY SUAZO MD . CONSTITUTIONAL: ANY CHANGE IN YOUR MEDICAL CONDITION? NO . CHILLS NO . FEVER NO . INFECTION: DO YOU HAVE NEW INFECTIONS? NO . DO YOU HAVE HISTORY OF MRSA? NO . MUSCULOSKELETAL: ANY NEW PATTERNS OF PAIN OR NUMBNESS? NO . GASTROENTEROLOGY: ANY NEW CHANGE IN BOWEL CONTROL? NO . GENITOURINARY: ANY NEW CHANGE IN BLADDER CONTROL? NO . IS THERE A CHANCE YOU COULD BE ? NO . HEMATOLOGY/LYMPH: DO YOU TAKE ANY BLOOD THINNERS? (FOR EXAMPLE- COUMADIN, PLAVIX, AGGRENOX, PLATEL, PRADAXA, OR XARELTO) NO . WHEN WAS YOUR LAST DOSE? DATE: TIME: . NEUROLOGY: HAVE YOU FALLEN IN THE PAST 12 MONTHS? YES, PRIOR TO LAST VISIT . ANY NEW EXTREMITY NUMBNESS OR WEAKNESS? YES, BILAT ARMS WEAKNESS AND NUMBNESS . CARDIOLOGY: DO YOU HAVE A PACEMAKER OR DEFIBRILLATOR? NO . RESPIRATORY: HAVE YOU BEEN SICK IN THE PAST WEEK? NO . FEVER NO . FLU LIKE SYMPTOMS? NO . COUGH NO . INTEGUMENTARY: DO YOU HAVE ANY RASHES OR OPEN SORES? NO . ALLERGIC/IMMUNO: ARE YOU ALLERGIC TO IV DYE? NO . ANY NEW ALLERGIES? NO . PSYCHIATRIC: DO YOU HAVE THOUGHTS OF HURTING YOURSELF OR SOMEONE ELSE? NO . ARE YOU ABUSED, NEGLECTED, OR IN AN UNSAFE ENVIRONMENT? NO . ENDOCRINOLOGY: ARE YOU DIABETIC? NO . OTHER: DO YOU NEED ANY PRESCRIPTIONS? YES, ASKING FOR SOMETHING FOR PAIN . IF YES, PLEASE LIST: ____ . ANY NEW PROBLEMS WITH YOUR MEDICATIONS? NO . WHEN DID YOU LAST EAT? ____ . WHEN DID YOU LAST DRINK? ____ . WHAT DID YOU LAST DRINK? ____ . NAME OF PERSON DRIVING YOU HOME? ____ . DO YOU HAVE ANY OTHER QUESTIONS OR CONCERNS NO . VITAL SIGNS WT 232.6 LBS, HT 64 IN, BMI 39.92 INDEX, BP 135/86 MM HG, HR 75 /MIN, RR 18 /MIN, TEMP 97.3 F, OXYGEN SAT % 99%, NA INITIALS SC 14:13, REVIEWED BY: EM. EXAMINATION GENERAL EXAMINATION: PATIENT IS ALERT O X 3 AND COOPERATIVE. LUNGS CLEAR, TO AUSCULTATION. HEART: NO MURMURS OR GALLOPS; FACIAL CRANIAL NERVES ARE GROSSLY NORMAL. GOOD SYMMETRY OF FACIAL MUSCLE MOVEMENT. NORMAL VISUAL MARADIAGA. TENDERNESS IN THE RIGHT AND LEFT NECK AREA. PAIN INCREASES OVER THE CERVICAL FACET JOINTS WITH EXTENSION AND LATERAL ROTATION OF THE NECK. MRI OF THE CERVICAL SPINE DONE ON 12/13/2018 SHOWS FACET ARTHROPATHY CHANGES AT MULTIPLE LEVELS. ASSESSMENTS SPONDYLOSIS OF CERVICAL REGION WITHOUT MYELOPATHY OR RADICULOPATHY - M47.812 (PRIMARY) TREATMENT SPONDYLOSIS OF CERVICAL REGION WITHOUT MYELOPATHY OR RADICULOPATHY CLINICAL NOTES: WE DISCUSSED SEVERAL ISSUES WITH MS. LEBRON'S PAIN MANAGEMENT CASE. DUE TO THE CERVICAL SPONDYLOSIS, I WOULD LIKE TO MOVE FORWARD WITH A THERAPEUTIC CERVICAL FACET BLOCK AT THIS TIME. THE PATIENT WOULD LIKE TO MOVE FORWARD WITH IV SEDATION DUE TO DISCOMFORT, PAIN, AND ANXIETY ASSOCIATED WITH THE PROCEDURE. WE DISCUSSED THE BENEFITS, RISKS, AND ALTERNATIVES OF THE INJECTION AND THE PATIENT WOULD LIKE TO PROCEED. THE PATIENT WILL FOLLOW UP WITH THE NURSE PRACTITIONER IN SEVERAL WEEKS AFTER THE INJECTION. INSTRUCTIONS WERE GIVEN, QUESTIONS WERE ANSWERED, PATIENT REPORTS UNDERSTANDING AND AGREES WITH THE PLAN. I, IVORY FERRERA, DOCUMENTED THE ABOVE INFORMATION ACTING A SCRIBE FOR DR. SUAZO. I HAVE REVIEWED THE ABOVE DOCUMENT, WRITTEN BY IVORY FLORENCE AND I VERIFY THAT IT IS ACCURATE. . PROCEDURE CODES FA211 ESTABILISHED PATIENT [facility] FACILITY CHARGE [id number] CURRENT MEDS W/DOSAGES DOCUMENTED [id number] PAIN ASSESS POS TOOL F/U PLAN DOC DISPOSITION & COMMUNICATION FOLLOW UP 3 WEEKS ELECTRONICALLY SIGNED BY JEREMY SUAZO MD, MD ON 01/30/2019 AT 10:44 AM EDT DISCLAIMER : THIS IS A VISIT SUMMARY EXTRACTED FROM THE [facility] CHART. IT IS NOT A COPY OF THE [facility] PROGRESS NOTE. ARMIN
== END ==
LOC: M PAIN 13:45
PROVIDERS: ATTEND Anesthesiology
DX: M47.812 Spondylosis without myelopathy or radiculopathy, cervical region (principal); E89.0 Postprocedural hypothyroidism; M48.00 Spinal stenosis, site unspecified; Z85.41 Personal history of malignant neoplasm of cervix uteri; G43.909 Migraine, unspecified, not intractable, without status migrainosus; M17.12 Unilateral primary osteoarthritis, left knee; M54.41 Lumbago with sciatica, right side; M54.42 Lumbago with sciatica, left side; F17.210 Nicotine dependence, cigarettes, uncomplicated; Z79.899 Other long term (current) drug therapy

== ENCOUNTER → 2019-01-18 | Outpatient (CLI) | payer OTHER ==
[~2019-01-18] MED LIST: BUPIVACAINE HCL 0.25% 30 ML VIAL As Ordered ONE; ISOVUE-M 300 61% 15ML VIAL (Q9967) As Ordered ONE; LIDOCAINE 1% SDV INJ 30 ML VIAL As Ordered ONE; MIDAZOLAM INJ 2 MG/2 ML VIAL (J2250) As Ordered ONE; TRIAMCINOLONE ACETONIDE SUSP 40 MG/ML VIAL (J3301) As Ordered ONE; fentaNYL 100 MCG/2 ML INJECTION (J3010) As Ordered ONE
--- NOTE | 2019-01-18 16:11 | REP ---
C-spine: Limited study two views. History: Injection procedure for pain. 30 seconds of fluoroscopy time is reported. Findings: A sequence of two last image hold fluoroscopically obtained spot radiographs of the cervical spine document the needle positions and contrast injection associated with injection procedure. Electronically Signed by Perez Beltrán MD 01/18/2019 04:03 P
--- NOTE | 2019-01-31 00:47 | ECWPNPC ---
PATIENT NAME: GLADYS LEBRONID : 1970 GENDER: FEMALE VISIT DATE: 01/18/2019 DISCHARGE DATE: 01/18/19 1632 VISIT LOCKED DATE TIME: PHYSICIAN: JEREMY SUAZO MD RESOURCE: JEREMY SUAZO MD REASON FOR APPOINTMENT 1. BILAT THERAPUTIC FB W/ IV SEDATION-EXP 02-03 HISTORY OF PRESENT ILLNESS HISTORY OF PRESENT ILLNESS: PAIN THE PATIENT DESCRIBES THE PAIN... FALL RISK SCREENING: SCREENING :NO FALLS REPORTED IN THE LAST YEAR CURRENT MEDICATIONS TAKING LEVOTHYROXINE SODIUM 112 MCG TABLET ORALLY , NOTES: MANAGED BY ENDOCRINE TAKING DULOXETINE HCL 30 MG CAPSULE DELAYED RELEASE PARTICLES ORAL BID TAKING NAPROSYN 500 MG TABLET 1 TABLET WITH FOOD OR MILK NEEDED ORALLY EVERY 12 HRS MEDICATION LIST REVIEWED AND RECONCILED WITH THE PATIENT PAST MEDICAL HISTORY SPONDYLOLITHESIS SPINAL STENOSIS THYROID CANCER 2008- SX FOR REMOVAL 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 SURGICAL HISTORY THYROIDECTOMY 2008 PARTIAL HYSTERECTOMY- PA 1998 FAMILY HISTORY FATHER: ALIVE 72 YRS, HTN, ARTHRITIS, DIAGNOSED WITH DIABETES MOTHER: ALIVE 71 YRS, HYPOTHYROIDISM, DEPRESSION, HTN SIBLINGS: ALIVE 51 YRS, OBESITY SON(S): ALIVE, ADHD DAUGHTER(S): ALIVE PATERNAL GRAND FATHER: 60 YRS, ALCOHOLISM PATERNAL GRAND MOTHER: 70 YRS, CANCER MATERNAL GRAND FATHER: 70 YRS, TYPE II DIABETES, HTN, MULTIPLE STROKES, DIABETES MATERNAL GRAND MOTHER: 40 YRS, OVARIAN CANCER, 1 SISTER(S) . 2 SON(S) , 2 DAUGHTER(S) . PT REPORTS STRONG FAMILY HISTORY OF COLON CANCER. \NPT REPORTS STRONG FAMIY HISTORY OF DM ON MOTHER SIDE. SOCIAL HISTORY GENERAL: TOBACCO USE ARE YOU A:CURRENT SMOKER ARE YOU INTERESTED IN QUITTING?READY TO QUIT PREVIOUS QUIT ATTEMPTS?YES, WITHIN THE LAST 6 MONTHS. COUNSELED THE PATIENT ON TOBACCO USE, CESSATION [id number]/05/2019 HOW MANY CIGARETTES A DAY DO YOU SMOKE?5 OR LESS HOW SOON AFTER YOU WAKE UP DO YOU SMOKE YOUR FIRST CIGARETTE?AFTER 60 MIN HOW OFTEN DO YOU SMOKE CIGARETTES?EVERY DAY PATIENT COUNSELED ON THE DANGERS OF TOBACCO USE AND URGED TO QUIT:01/18/2019 HIV / HEP-C SCREENING HIV TEST OFFERED TO PATIENT:YES DATE OFFERED:08/15/2018 TEST ACCEPTED:NO HEP-C TEST OFFERED TO PATIENT:YES DATE OFFERED:08/15/2018 REASON:PATIENT DECLINED TEST ACCEPTED:NO REASON:PATIENT DECLINED BROCHURE PROVIDED TO PATIENTYES OTHERS AT HOME: . EDUCATION LEVEL OF EDUCATION:COLLEGE DIET: REGULAR. LANGUAGE LANGUAGES SPOKEN:BOTH GUYANESE AND TELUGU DOMESTIC VIOLENCE DO YOU FEEL SAFE IN YOUR ENVIRONMENT?YES RECREATIONAL DRUG USE DRUG USE?NO LEARNING BARRIERS / SPECIAL NEEDS BARRIERS TO LEARNING?NO HEARING IMPAIRED?NO VISION IMPAIRED?YES COGNITIVELY IMPAIRED?NO :CORRECTIVE LENSES READINESS TO LEARN?YES LEARNING PREFERENCES?NO LEARNING CAPABILITIES PRESENT?YES PAIN CLINIC PFS, CLERGY, PUBLIC HEALTH REFERRALS HAS THE PATIENT BEEN EDUCATED REGARDING HIS/HER PLAN OF CARE?YES HAS THE PATIENT BEEN EDUCATED REGARDING PAIN, THE RISK FOR PAIN, THE IMPORTANCE OF EFFECTIVE PAIN MANAGEMENT, AND THE PAIN ASSESSMENT PROCESS?YES LATEX QUESTIONNAIRE LATEX ALLERGY : HAVE YOU EVER DEVELOPED ANY TYPE OF REACTION AFTER HANDLING LATEX PRODUCTS SUCH RUBBER GLOVES, CONDOMS, DIAPHRAGMS, BALLOONS, SOCKS, OR UNDERWEAR?NO LATEX ALLERGY : HAVE YOU EVER DEVELOPED ANY TYPE OF REACTION DURING OR AFTER DENTAL APPOINTMENT, VAGINAL/RECTAL EXAMINATION, SURGICAL PROCEDURE, OR ANY OTHER EXPOSURE?NO LATEX RISK : HAVE YOU EVER HAD ANY DIFFICULTY BREATHING OR HIVES AFTER EATING OR HANDLING ANY FRUITS, OR VEGETABLES; SUCH KIWI, BANANAS, STONE FRUITS, OR CHESTNUTSNO LATEX RISK : DO YOU HAVE A PREVIOUS PERSONAL HISTORY OF MORE THAN NINE SURGERIES, SPINA BIFIDA, OR REPEATED CATHERIZATIONS? NO LATEX RISK : ARE YOU FREQUENTLY EXPOSED TO LATEX PRODUCTS IN YOUR OCCUPATION?NO DATE ASKED : 01/18/2019 CAFFEINE CAFFEINE USE?YES 2 CUPS COFFEE DAILY ADVANCE DIRECTIVE ADVANCE DIRECTIVE DISCUSSED WITH PATIENT:YES PT DOES NOT HAVE HCP AND DECLINES ASSISTANCE WITH FORM TODAY. SYNAGOGUE [id number] SHINTO MARITAL STATUS: . OCCUPATION: FT [employer]. SEXUAL HX HAD SEX IN THE LAST 12 MONTHS (VAGINAL, ORAL, OR ANAL)?YES WITHMEN ONLY PREVENTION STRATEGIES DISCUSSED:OTHER USE PROTECTION?NO LMP:1998 HAVE YOU EVER HAD AN STD?NO REVIEWED WITH PT 12/01/18 1116 BV. HOSPITALIZATION/MAJOR DIAGNOSTIC PROCEDURE THYROID ISSUES PRIOR TO SX REVIEW OF SYSTEMS REVIEWED BY: PROVIDER: . CONSTITUTIONAL: ANY CHANGE IN YOUR MEDICAL CONDITION? NO . CHILLS NO . FEVER NO . INFECTION: DO YOU HAVE NEW INFECTIONS? NO . DO YOU HAVE HISTORY OF MRSA? NO . MUSCULOSKELETAL: ANY NEW PATTERNS OF PAIN OR NUMBNESS? NO . GASTROENTEROLOGY: ANY NEW CHANGE IN BOWEL CONTROL? NO . GENITOURINARY: ANY NEW CHANGE IN BLADDER CONTROL? NO . IS THERE A CHANCE YOU COULD BE ? NO . HEMATOLOGY/LYMPH: DO YOU TAKE ANY BLOOD THINNERS? (FOR EXAMPLE- COUMADIN, PLAVIX, AGGRENOX, PLATEL, PRADAXA, OR XARELTO) NO . WHEN WAS YOUR LAST DOSE? DATE: TIME: . NEUROLOGY: HAVE YOU FALLEN IN THE PAST 12 MONTHS? YES . ANY NEW EXTREMITY NUMBNESS OR WEAKNESS? NO . CARDIOLOGY: DO YOU HAVE A PACEMAKER OR DEFIBRILLATOR? NO . RESPIRATORY: HAVE YOU BEEN SICK IN THE PAST WEEK? NO . FEVER NO . FLU LIKE SYMPTOMS? NO . COUGH NO . INTEGUMENTARY: DO YOU HAVE ANY RASHES OR OPEN SORES? NO . ALLERGIC/IMMUNO: ARE YOU ALLERGIC TO IV DYE? NO . ANY NEW ALLERGIES? NO . PSYCHIATRIC: DO YOU HAVE THOUGHTS OF HURTING YOURSELF OR SOMEONE ELSE? NO . ARE YOU ABUSED, NEGLECTED, OR IN AN UNSAFE ENVIRONMENT? NO . ENDOCRINOLOGY: ARE YOU DIABETIC? NO . OTHER: DO YOU NEED ANY PRESCRIPTIONS? NO . IF YES, PLEASE LIST: ____ . ANY NEW PROBLEMS WITH YOUR MEDICATIONS? NO . WHEN DID YOU LAST EAT? ____01/17/19 . WHEN DID YOU LAST DRINK? ____09 . WHAT DID YOU LAST DRINK? ____WATER . NAME OF PERSON DRIVING YOU HOME? ____JAMIE HANNAN . DO YOU HAVE ANY OTHER QUESTIONS OR CONCERNS NO . VITAL SIGNS WT 231.2 LBS, HT 64 IN, BMI 39.68 INDEX, BP 141/73 MM HG, HR 76 /MIN, RR 18 /MIN, TEMP 98.3 F, OXYGEN SAT % 99%, SAFE IN ENV? (Y/N) YES, NA INITIALS AW 1307, REVIEWED BY: VD. ASSESSMENTS SPONDYLOSIS OF CERVICAL REGION WITHOUT MYELOPATHY OR RADICULOPATHY - M47.812 (PRIMARY) TREATMENT SPONDYLOSIS OF CERVICAL REGION WITHOUT MYELOPATHY OR RADICULOPATHY [facility] FACET BLOCK (PAIN)[id number] PROCEDURES PN CERVICAL FACET BLOCK LOW BILATERAL CERVICAL PRE PROCEDURE DIAGNOSIS CERVICAL SPONDYLOSIS POST PROCEDURE DIAGNOSIS CERVICAL SPONDYLOSIS PROCEDURE BILATERAL C2-C3 AND C3-C4 CERVICAL THERAPEUTIC FACET BLOCK SURGEON DR. JEREMY SUAZO SALES CONSULTANT INSURANCE NONE ANESTHESIA LOCAL WITH IV SEDATION. PRE PROCEDURE NOTE THE PATIENT HAS HISTORY OF CHRONIC CERVICAL PAIN. I EVALUATED THE PATIENT AND REVIEWED THE CHART. I WENT OVER THE RISKS, ALTERNATIVES, AND BENEFITS ASSOCIATED WITH THIS PROCEDURE. THE PATIENT WOULD LIKE TO MOVE FORWARD WITH IV SEDATION DUE TO DISCOMFORT, PAIN, AND ANXIETY ASSOCIATED WITH THE PROCEDURE. THE PATIENT WOULD LIKE TO PROCEED AND GIVES CONSENT TO PERFORM THE PROCEDURE. THE PATIENT DENIES UNEXPLAINABLE WEIGHT LOSS, FEVER, CHILLS, OR NEW CHANGES IN URINARY OR BOWEL CONTROL. DESCRIPTION OF PROCEDURE THE PATIENT WAS BROUGHT TO THE PROCEDURE ROOM AND PLACED IN THE PRONE POSITION. THE CERVICOTHORACIC AREA WAS CLEANED WITH CHLORAPREP SOLUTION AND DRAPED ASEPTICALLY. THE PROCEDURE WAS DONE UNDER STERILE CONDITIONS. I CHECKED LATERALITY AND THE LEVEL WHERE THE PROCEDURE WAS GOING TO BE PERFORMED WITH THE PATIENT AND THE SUPPORTING STAFF AT THE MOMENT OF THE TIME OUT IN THE PROCEDURE ROOM. UNDER FLUOROSCOPIC GUIDANCE, TARGET POINT WAS SELECTED AT THE RIGHT AND LEFT C2-C3 AND RIGHT AND LEFT C3-C4 CERVICAL FACET JOINTS. TARGET POINTS WERE SELECTED AFTER LATERAL ROTATION AND TILT OF THE MAGNIFIER OF THE C-ARM. LIDOCAINE 0.5% WAS USED TO NUMB THE SKIN AND THE SUBCUTANEOUS TISSUE BELOW IT. SPINAL NEEDLES, 22-GAUGE, WERE ADVANCED UNDER FLUOROSCOPIC GUIDANCE AND FOLLOWING PATIENT FEEDBACK UNTIL THE TARGETS WERE TOUCHED. THE POSITION OF THE NEEDLES WAS VERIFIED WITH AP AND LATERAL VIEWS. AFTER PROPER POSITION OF THE NEEDLES WAS ACHIEVED, ISOVUE M DYE 30, 0.1 ML WAS INJECTED SHOWING SPREAD OF THE DYE. THEN A SOLUTION OF 0.9 ML OF BUPIVACAINE 0.125% AND KENALOG 10 MG WAS INJECTED AT EACH SITE. THERE WAS NO EVIDENCE OF BLOOD, PARESTHESIA OR CEREBROSPINAL FLUID DURING THE PROCEDURE. THE PATIENT WAS SENT TO THE RECOVERY ROOM. THE PATIENT WAS MOVING THE EXTREMITIES AND DOING WELL. THERE WAS NO COMPLICATION DURING THE PROCEDURE. PATIENT RECEIVED VERSED 2 MG AND FENTANYL 200 MCG IV DIVIDED DOSES. FACE TO FACE TIME WAS 15 MINUTES. FLUOROSCOPY TIME WAS 30 SECONDS POST PROCEDURE NOTE THE PATIENT WILL BE SEEN IN A FOLLOW UP IN THE NEXT FEW WEEKS. INSTRUCTIONS WERE GIVEN, QUESTIONS WERE ANSWERED, AND THE PATIENT EXPRESSED UNDERSTANDING AND AGREES WITH THE PLAN. I, IVORY HEMRIC, DOCUMENTED THE ABOVE INFORMATION ACTING A SCRIBE FOR DR. SUAZO. I HAVE REVIEWED THE ABOVE DOCUMENT, WRITTEN BY IVORY FERRERA SCRIBE AND I VERIFY THAT IT IS ACCURATE. PROCEDURE CODES 08201 INJ PARAVERT F JNT C/T 1 LEV, MODIFIERS: 50 14459 INJ PARAVERT F JNT C/T 2 LEV, MODIFIERS: 50 6045F RADXPS IN END [id number] PXD 84004 MOD SED SAME PHYS/QHP 5/>YRS DISPOSITION & COMMUNICATION FOLLOW UP 3 WEEKS ELECTRONICALLY SIGNED BY JEREMY SUAZO MD, MD ON 01/30/2019 AT 12:07 PM EDT DISCLAIMER : THIS IS A VISIT SUMMARY EXTRACTED FROM THE [facility] CHART. IT IS NOT A COPY OF THE [facility] PROGRESS NOTE. MTDD
== END ==
LOC: M PAIN 13:00
PROVIDERS: ATTEND Anesthesiology
DX: M47.812 Spondylosis without myelopathy or radiculopathy, cervical region (principal); M48.00 Spinal stenosis, site unspecified; E89.0 Postprocedural hypothyroidism; Z85.41 Personal history of malignant neoplasm of cervix uteri; M17.12 Unilateral primary osteoarthritis, left knee; M54.41 Lumbago with sciatica, right side; M54.42 Lumbago with sciatica, left side; F17.210 Nicotine dependence, cigarettes, uncomplicated; Z79.899 Other long term (current) drug therapy
CPT/HCPCS: 64490; 64491; 99152; J2250; J3010; J3301; Q9967

== ENCOUNTER → 2019-02-12 | Outpatient (CLI) | payer OTHER ==
--- NOTE | 2019-02-14 00:07 | ECWPNPC ---
PATIENT NAME: GLADYS LEBRON : 1970 GENDER: FEMALE VISIT DATE: 02/12/2019 DISCHARGE DATE: 02/12/19 1302 VISIT LOCKED DATE TIME: PHYSICIAN: LES ADHIKARI RESOURCE: LES ADHIKARI REASON FOR APPOINTMENT 1. POST PROC HISTORY OF PRESENT ILLNESS HISTORY OF PRESENT ILLNESS: PAIN THE PATIENT DESCRIBES THE PAIN... 48-YEAR-OLD FEMALE IN FOR POST CERVICAL FACET BLOCK FOLLOW-UP. SHE FEELS THE PROCEDURE WORKED WELL FOR 1 WEEK SHE RATED HER PAIN PREPROCEDURE AT AN 8 OUT OF 10 POST PROCEDURE AT A 0 OUT OF 10. SHE DOES ADMITS TO RADICULAR SYMPTOMS DOWN HER LEFT ARM. FALL RISK SCREENING: SCREENING :NO FALLS REPORTED IN THE LAST YEAR CURRENT MEDICATIONS TAKING LEVOTHYROXINE SODIUM 112 MCG TABLET ORALLY DAILY, NOTES: MANAGED BY ENDOCRINE TAKING DULOXETINE HCL 30 MG CAPSULE DELAYED RELEASE PARTICLES ORAL BID NOT-TAKING NAPROSYN 500 MG TABLET 1 TABLET WITH FOOD OR MILK NEEDED ORALLY EVERY 12 HRS MEDICATION LIST REVIEWED AND RECONCILED WITH THE PATIENT PAST MEDICAL HISTORY SPONDYLOLITHESIS SPINAL STENOSIS THYROID CANCER 2008- SX FOR REMOVAL CERVICAL CANCER- 1998- PARTIAL HYSTER OVARIAN CYST LEFT OVARY MIGRAINES-TOPAMAX IN THE PAST LEFT KNEE, BONE ON BONE ARTHRITIS, NEED KNEE REPLACEMENT HYPOTHYROIDISM-S/P THYROIDECTOMY LUMBAGO WITH SCIATICA, LEFT SIDE LUMBAGO WITH SCIATICA, RIGHT SIDE MAMMOGRAM 08/2018-NORMAL 8 YEAR ASCVD RISK 3.9% NECK PAIN ALLERGIES N.K.D.A. SURGICAL HISTORY THYROIDECTOMY 2008 PARTIAL HYSTERECTOMY- PA 1998 FAMILY HISTORY FATHER: ALIVE 72 YRS, HTN, ARTHRITIS, DIAGNOSED WITH DIABETES MOTHER: ALIVE 71 YRS, HYPOTHYROIDISM, DEPRESSION, HTN SIBLINGS: ALIVE 51 YRS, OBESITY SON(S): ALIVE, ADHD DAUGHTER(S): ALIVE PATERNAL GRAND FATHER: 60 YRS, ALCOHOLISM PATERNAL GRAND MOTHER: 70 YRS, CANCER MATERNAL GRAND FATHER: 70 YRS, TYPE II DIABETES, HTN, MULTIPLE STROKES, DIABETES MATERNAL GRAND MOTHER: 40 YRS, OVARIAN CANCER, 1 SISTER(S) . 2 SON(S) , 2 DAUGHTER(S) . PT REPORTS STRONG FAMILY HISTORY OF COLON CANCER. \NPT REPORTS STRONG FAMIY HISTORY OF DM ON MOTHER SIDE. SOCIAL HISTORY GENERAL: TOBACCO USE ARE YOU A:CURRENT SMOKER ARE YOU INTERESTED IN QUITTING?READY TO QUIT PREVIOUS QUIT ATTEMPTS?YES, WITHIN THE LAST 6 MONTHS. COUNSELED THE PATIENT ON TOBACCO USE, CESSATION BTDROICC99/30/2019 HOW MANY CIGARETTES A DAY DO YOU SMOKE?5 OR LESS HOW SOON AFTER YOU WAKE UP DO YOU SMOKE YOUR FIRST CIGARETTE?AFTER 60 MIN HOW OFTEN DO YOU SMOKE CIGARETTES?SOME DAYS, BUT NOT EVERY DAY PATIENT COUNSELED ON THE DANGERS OF TOBACCO USE AND URGED TO QUIT:02/12/2019 HIV / HEP-C SCREENING HIV TEST OFFERED TO PATIENT:YES DATE OFFERED:08/15/2018 TEST ACCEPTED:NO HEP-C TEST OFFERED TO PATIENT:YES DATE OFFERED:08/15/2018 REASON:PATIENT DECLINED TEST ACCEPTED:NO REASON:PATIENT DECLINED BROCHURE PROVIDED TO PATIENTYES OTHERS AT HOME: . EDUCATION LEVEL OF EDUCATION:COLLEGE DIET: REGULAR. 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?NO PAIN CLINIC PFS, CLERGY, PUBLIC HEALTH REFERRALS HAS THE PATIENT BEEN EDUCATED REGARDING HIS/HER PLAN OF CARE?YES HAS THE PATIENT BEEN EDUCATED REGARDING PAIN, THE RISK FOR PAIN, THE IMPORTANCE OF EFFECTIVE PAIN MANAGEMENT, AND THE PAIN ASSESSMENT PROCESS?YES LATEX QUESTIONNAIRE LATEX ALLERGY : HAVE YOU EVER DEVELOPED ANY TYPE OF REACTION AFTER HANDLING LATEX PRODUCTS SUCH RUBBER GLOVES, CONDOMS, DIAPHRAGMS, BALLOONS, SOCKS, OR UNDERWEAR?NO LATEX ALLERGY : HAVE YOU EVER DEVELOPED ANY TYPE OF REACTION DURING OR AFTER DENTAL APPOINTMENT, VAGINAL/RECTAL EXAMINATION, SURGICAL PROCEDURE, OR ANY OTHER EXPOSURE?NO LATEX RISK : HAVE YOU EVER HAD ANY DIFFICULTY BREATHING OR HIVES AFTER EATING OR HANDLING ANY FRUITS, OR VEGETABLES; SUCH KIWI, BANANAS, STONE FRUITS, OR CHESTNUTSNO LATEX RISK : DO YOU HAVE A PREVIOUS PERSONAL HISTORY OF MORE THAN NINE SURGERIES, SPINA BIFIDA, OR REPEATED CATHERIZATIONS? NO LATEX RISK : ARE YOU FREQUENTLY EXPOSED TO LATEX PRODUCTS IN YOUR OCCUPATION?NO DATE ASKED : 02/12/2019 CAFFEINE CAFFEINE USE?YES 2 CUPS COFFEE DAILY ADVANCE DIRECTIVE ADVANCE DIRECTIVE DISCUSSED WITH PATIENT:YES 02-12-19 PT DOES NOT HAVE ANY ADVANCED DIRECTIVES AND SHE DECLINES INFORAMTION ON HCP AT THIS TIME. AD ADVENTISM [id number] EVANGELICAL MARITAL STATUS: . OCCUPATION: FT [employer]. SEXUAL HX HAD SEX IN THE LAST 12 MONTHS (VAGINAL, ORAL, OR ANAL)?YES WITHMEN ONLY PREVENTION STRATEGIES DISCUSSED:OTHER USE PROTECTION?NO LMP:1998 HAVE YOU EVER HAD AN STD?NO REVIEWED WITH PT 12/01/18 1116 BV. HOSPITALIZATION/MAJOR DIAGNOSTIC PROCEDURE THYROID ISSUES PRIOR TO SX REVIEW OF SYSTEMS REVIEWED BY: PROVIDER: BRANDIE ADHIKARI SUPERVISOR FABRICATION-C . CONSTITUTIONAL: ANY CHANGE IN YOUR MEDICAL CONDITION? NO . CHILLS NO . FEVER NO . INFECTION: DO YOU HAVE NEW INFECTIONS? NO . DO YOU HAVE HISTORY OF MRSA? NO . MUSCULOSKELETAL: ANY NEW PATTERNS OF PAIN OR NUMBNESS? YES, INCREASE IN PAIN. THE FACET BLOCK LASTED APPROX A WEEK. 02/04 SHE HAS THE WORST HEADACHE OF HER LIFE. THE HEADACHE LASTED >24 HOURS. SHE HAS HAD A HEADACHE DAILY SINCE. BOTH HANDS ARE GOING NUMB . GASTROENTEROLOGY: ANY NEW CHANGE IN BOWEL CONTROL? NO . GENITOURINARY: ANY NEW CHANGE IN BLADDER CONTROL? NO . IS THERE A CHANCE YOU COULD BE ? NO . HEMATOLOGY/LYMPH: DO YOU TAKE ANY BLOOD THINNERS? (FOR EXAMPLE- COUMADIN, PLAVIX, AGGRENOX, PLATEL, PRADAXA, OR XARELTO) NO . WHEN WAS YOUR LAST DOSE? DATE: TIME: . NEUROLOGY: HAVE YOU FALLEN IN THE PAST 12 MONTHS? NO . ANY NEW EXTREMITY NUMBNESS OR WEAKNESS? YES,BOTH HANDS ARE GOING NUMB. . CARDIOLOGY: DO YOU HAVE A PACEMAKER OR DEFIBRILLATOR? NO . RESPIRATORY: HAVE YOU BEEN SICK IN THE PAST WEEK? NO . FEVER NO . FLU LIKE SYMPTOMS? NO . COUGH NO . INTEGUMENTARY: DO YOU HAVE ANY RASHES OR OPEN SORES? NO . ALLERGIC/IMMUNO: ARE YOU ALLERGIC TO IV DYE? NO . ANY NEW ALLERGIES? NO . PSYCHIATRIC: DO YOU HAVE THOUGHTS OF HURTING YOURSELF OR SOMEONE ELSE? NO . ARE YOU ABUSED, NEGLECTED, OR IN AN UNSAFE ENVIRONMENT? NO . ENDOCRINOLOGY: ARE YOU DIABETIC? NO . OTHER: DO YOU NEED ANY PRESCRIPTIONS? YES . IF YES, PLEASE LIST: DULOXETINE . ANY NEW PROBLEMS WITH YOUR MEDICATIONS? NO . WHEN DID YOU LAST EAT? ____ . WHEN DID YOU LAST DRINK? ____ . WHAT DID YOU LAST DRINK? ____ . NAME OF PERSON DRIVING YOU HOME? ____ . DO YOU HAVE ANY OTHER QUESTIONS OR CONCERNS NO . VITAL SIGNS WT 234 LBS, HT 64 IN, BMI 40.16 INDEX, BP 155/87 MM HG, HR 68 /MIN, RR 16 /MIN, TEMP 98.4 F, OXYGEN SAT % 98%, SAFE IN ENV? (Y/N) Y, NA INITIALS SC 12:04, REVIEWED BY: AD. EXAMINATION GENERAL EXAMINATION: GENERALNO ACUTE DISTRESS, WELL NOURISHED AND HYDRATED. PSYCHAPPROPRIATE MOOD AND AFFECT . NECK:POINT TENDER ALONG CERVICAL SPINE ENDORSES INCREASED PAIN WITH CERVICAL FACET LOADING SURROUNDING SKIN SHOWS NO ERYTHEMA, ECCHYMOSIS, INCREASED WARMTH, AND/OR SKIN ERUPTIONS NOTED. . LUNGS:CLEAR TO AUSCULTATION BILATERALLY, NO WHEEZES, RHONCHI, RALES. HEART:NO MURMURS, REGULAR RATE AND RHYTHM. ASSESSMENTS SPONDYLOSIS OF CERVICAL SPINE WITH RADICULOPATHY - M47.22 (PRIMARY) TREATMENT SPONDYLOSIS OF CERVICAL SPINE WITH RADICULOPATHY START GABAPENTIN CAPSULE, 100 MG, 1 CAPSULE, ORALLY, THREE TIMES DAILY, 30 DAY(S), 90 NOTES: CERVICAL FACET BLOCK C2-C3 C3-C4 WITH IV SEDATION. CLINICAL NOTES: 48-YEAR-OLD FEMALE IN FOR STATUS POST CERVICAL FACET BLOCK FOLLOW-UP. GIVEN PRESENTING SYMPTOMS AND RESULTED PHYSICAL EXAMINATION RECOMMENDED REPEAT FACET BLOCK, AND STARTING GABAPENTIN 100 MG 3 TIMES A DAY. PATIENT HAS EXPRESSED UNDERSTANDING OF AND WAS IN AGREEMENT WITH TREATMENT PLAN. GIVEN TIME TO ASK QUESTIONS AND EXPRESS CONCERNS. OTHERS REFILL DULOXETINE HCL CAPSULE DELAYED RELEASE PARTICLES, 30 MG, 1 CAPSULE, ORAL, BID, 30 DAYS, 60 CAPSULE PREVENTIVE MEDICINE PAIN CLINIC TEACHING: PROCEDURE TEACHING PT DECLINED PRINTED INFORAMTION ON CERVICAL FACET BLOCLK STATING SHE IS FAMILIAR WITH IT. PRINTED PRE-PROCEDURE INSTRUCTIONS GIVEN TO AND REVIEWED WITH PT. AND SHE VERBALIZED UNDERSTANDING. AD. MEDITATION PRINTED INFORMATION ON GABAPENTIN GIVEN TO AND REVIEWED WITH PT AND SHE VERBALIZED UNDERSTANDING. AD. PROCEDURE CODES FA211 ESTABILISHED PATIENT [facility] FACILITY CHARGE DISPOSITION & COMMUNICATION FOLLOW UP POST PROCEDURE (REASON: CERVICAL FACET BLOCK C2-C3 C3-C4 WITH IV SEDATION) ELECTRONICALLY SIGNED BY ESME PURVIS ON 02/13/2019 AT 09:01 AM EDT DISCLAIMER : THIS IS A VISIT SUMMARY EXTRACTED FROM THE [facility] CHART. IT IS NOT A COPY OF THE [employer] PROGRESS NOTE. MTDD
== END ==
LOC: M PAIN 11:15
PROVIDERS: ATTEND Family Medicine
DX: M47.22 Other spondylosis with radiculopathy, cervical region (principal); G43.909 Migraine, unspecified, not intractable, without status migrainosus; E03.9 Hypothyroidism, unspecified; F17.210 Nicotine dependence, cigarettes, uncomplicated; E66.01 Morbid (severe) obesity due to excess calories; Z68.41 Body mass index [BMI] 40.0-44.9, adult; Z79.899 Other long term (current) drug therapy

== ENCOUNTER → 2019-02-28 | Outpatient (REF) | payer OTHER ==
[2019-02-28 12:08] LABS: FREE T4 1.03 NG/DL (0.76-1.46); THYROID STIMULATING HORMONE 8.02 uIU/ML (0.358-3.740)
== END ==
LOC: M SFHCPLAZ 08:51
PROVIDERS: ATTEND Nurse Practitioner Family
DX: E89.0 Postprocedural hypothyroidism (principal)

== ENCOUNTER 2019-03-06 12:53 | Emergency (ER) | payer OTHER ==
[~2019-03-06] VITALS: Ht 162.6 cm; Wt 106.2 kg
[2019-03-06] MEDS ORDERED: LEVO112T2 PO (13:44)
[2019-03-06] MEDS ORDERED: NEUR100C PO (13:44)
[2019-03-06] MEDS ORDERED: ZONI25CA2 PO (13:44)
[2019-03-06] MEDS ORDERED: DULO30CA9 PO (13:44)
[2019-03-06] MEDS ORDERED: methylPREDNISolone INJ 125 MG/2 ML VIAL (J2930) IM ONE (14:00)
[2019-03-06 14:32] LABS: APPEARANCE, URINE CLEAR (CLEAR); BACTERIA, URINE AUTO 1+ (NEGATIVE); BILIRUBIN, URINE AUTO NEGATIVE (NEGATIVE); BLOOD, URINE BLOOD 1+ (NEGATIVE); COLOR, URINE YELLOW (YELLOW); GLUCOSE, URINE (UA) AUTO NEGATIVE (NEGATIVE); KETONE, URINE AUTO NEGATIVE (NEGATIVE); LEUKOCYTE ESTERASE, URINE AUTO NEGATIVE (NEGATIVE); MUCUS, URINE SMALL (NEGATIVE); NITRITE, URINE AUTO NEGATIVE (NEGATIVE); PROTEIN, URINE AUTO NEGATIVE (NEGATIVE); RBC, URINE AUTO 18 /HPF (0-3); SQUAMOUS EPITHELIAL CELL UR AU 0 /HPF (0-6); UROBILINOGEN, URINE AUTO 0.2 mg/dL (0.0-2.0); WBC, URINE AUTO 0 /HPF (0-3)
--- NOTE | 2019-03-06 14:33 | REP ---
CT lumbar spine: 03/06/2019. Indication: Low back pain. Comparison: None. Technique: Unenhanced axial images of the lumbar spine were obtained with sagittal and coronal reconstructions provided. Findings: There is no acute fracture, subluxation or dislocation. Disc space narrowing is present throughout. Vacuum disc phenomenon are present at L2/L3, L4/L5 and L5/S1. There is remodeling of the left S2 vertebra, likely representing an associated arachnoid cyst within the spinal canal. Tarlov cyst is considered less likely. No acute paraspinal soft tissue abnormalities are detected. There is minimal levoscoliosis of the lumbar spine which may be positional. Impression: No acute osseous injury of the lumbar spine. Electronically Signed by Vance Carlos DO 03/06/2019 02:24 P
[2019-03-06] MEDS ORDERED: GABA-843 PO (15:00)
[2019-03-06] MEDS ORDERED: MEDR4PAK PO (15:00)
[2019-03-06] MEDS ORDERED: CYMB1CAP5 PO (15:04)
[2019-03-06 15:09] VITALS: BP 122/80
== END 2019-03-06 15:12 | disposition home or self-care (01) ==
LOC: M ED 12:53
DX: M54.31 Sciatica, right side (principal); M51.36 Other intervertebral disc degeneration, lumbar region; F17.200 Nicotine dependence, unspecified, uncomplicated; Z79.899 Other long term (current) drug therapy
CPT/HCPCS: 72131; 81001; 87086; 96372; 99284; J2930

== ENCOUNTER → 2019-03-07 | Outpatient (REF) | payer OTHER ==
[~2019-03-07] MED LIST changes: -BUPIVACAINE HCL 0.25% 30 ML VIAL As Ordered ONE; +CYMB1CAP5 PO; +DULO30CA9 PO; +GABA-843 PO; -ISOVUE-M 300 61% 15ML VIAL (Q9967) As Ordered ONE; +LEVO112T2 PO; -LIDOCAINE 1% SDV INJ 30 ML VIAL As Ordered ONE; +MEDR4PAK PO; -MIDAZOLAM INJ 2 MG/2 ML VIAL (J2250) As Ordered ONE; +NEUR100C PO; -TRIAMCINOLONE ACETONIDE SUSP 40 MG/ML VIAL (J3301) As Ordered ONE; +ZONI25CA2 PO; -fentaNYL 100 MCG/2 ML INJECTION (J3010) As Ordered ONE
[2019-03-07 14:15] LABS: RHEUMATOID FACTOR QUANT < 10.0 IU/ML (<15.0); TOTAL PROTEIN 7.8 GM/DL (6.4-8.2)
[2019-03-07 14:25] LABS: FOLATE 12.8 NG/ML; VITAMIN B12 LEVEL 472 PG/ML
[2019-03-07 14:54] LABS: HEMOGLOBIN A1c 5.2 %
[2019-03-08 09:16] LABS: ALBUMIN 4.37 GM/DL (3.29-5.55); ALPHA-1-GLOBULIN % 4.8 % (2.9-4.9); ALPHA-1-GLOBULINS 0.37 GM/DL (0.17-0.41); ALPHA-2-GLOBULINS 0.83 GM/DL (0.42-0.99); ALPHA-2-GLOBULINS % 10.7 % (7.1-11.8); BETA-1-GLOBULINS 0.51 GM/DL (0.28-0.60); BETA-1-GLOBULINS % 6.5 % (4.7-7.2); BETA-2-GLOBULINS 0.37 GM/DL (0.19-0.55); BETA-2-GLOBULINS % 4.7 % (3.2-6.5); GAMMA GLOBULIN % 17.3 % (11.1-18.8); GAMMA GLOBULINS 1.35 GM/DL (0.65-1.58)
[2019-03-11 00:06] LABS: ANTINUCLEAR ANTIBODIES DIRECT Negative (Negative); VITAMIN B1 LEVEL WHOLE BLOOD 173.2 nmol/L (66.5-200.0); VITAMIN B6,PYRIDOXAL PHOSPHATE 3.5 ug/L (2.0-32.8); VITAMIN E(ALPHA TOCOPHEROL) 14.3 mg/L (7.0-25.1); VITAMIN E(GAMMA TOCOPHEROL) 1.8 mg/L (0.5-5.5)
[2019-03-13 10:13] LABS: DRVV SCREEN 31.6 SEC
[2019-03-13 10:17] LABS: PTT LUPUS TYPE ANTICOAG SCREEN 0.8 (0-1.2)
== END ==
LOC: M LABNEURO 09:18
PROVIDERS: ATTEND Psychiatry & Neurology Neurology
DX: G43.709 Chronic migraine without aura, not intractable, without status migrainosus (principal)

== ENCOUNTER → 2019-03-27 | Outpatient (CLI) | payer OTHER ==
--- NOTE | 2019-04-04 01:01 | ECWPNPC ---
PATIENT NAME: GLADYS LEBRON : 1970 GENDER: FEMALE VISIT DATE: 03/27/2019 DISCHARGE DATE: 03/27/19 1604 VISIT LOCKED DATE TIME: PHYSICIAN: JEREMY SUAZO MD RESOURCE: JEREMY SUAZO MD REASON FOR APPOINTMENT 1. PRE SEDATE HISTORY OF PRESENT ILLNESS HISTORY OF PRESENT ILLNESS: PAIN THE PATIENT DESCRIBES THE PAIN... 48 YEAR OLD FEMALE PATIENT WITH A HISTORY OF CHRONIC NECK PAIN. THE PATIENT DESCRIBES THE PAIN ACHING, SORE, TENDER, SHARP, STABBING, SHOOTING, DAILY, AND CONTINUOUS WITH A PAIN SCORE OF 7-9/10 DEPENDING ON PHYSICAL ACTIVITY. THE PATIENT STATES HER PAIN BEGINS IN HER NECK AND RADIATES UP TOWARDS HER HEAD CAUSING HEADACHES AND ALSO RADIATES DOWN MAINLY HER LEFT ARM. THE PATIENT SAYS HER PAIN MAKES IT DIFFICULTY TO PERFORM HER DAILY ACTIVITIES SUCH CLEANING HER HOUSE, COOKING, AND BENDING. THE PATIENT SAYS SHE IS EXTREMELY UNCOMFORTABLE FROM THE PAIN. PATIENT DENIES UNEXPLAINABLE WEIGHT LOSS, FEVER, CHILLS, NEW CHANGES ON HER URINARY OR BOWEL CONTROL. FALL RISK SCREENING: SCREENING :NO FALLS REPORTED IN THE LAST YEAR CURRENT MEDICATIONS TAKING LEVOTHYROXINE SODIUM 112 MCG TABLET ORALLY DAILY, NOTES: MANAGED BY ENDOCRINE TAKING DULOXETINE HCL 30 MG CAPSULE DELAYED RELEASE PARTICLES 1 CAPSULE ORAL BID TAKING GABAPENTIN 300 MG CAPSULE 1 CAPSULE ORALLY THREE TIMES DAILY TAKING ZONISAMIDE 50 MG CAPSULE 1 CAPSULE ORALLY TWICE A DAY TAKING MAXALT 10 MG TABLET 1 TABLET ORALLY PRN NOT-TAKING NAPROSYN 500 MG TABLET 1 TABLET WITH FOOD OR MILK NEEDED ORALLY EVERY 12 HRS MEDICATION LIST REVIEWED AND RECONCILED WITH THE PATIENT PAST MEDICAL HISTORY SPONDYLOLITHESIS SPINAL STENOSIS THYROID CANCER 2008- SX FOR REMOVAL CERVICAL CANCER- 1998- PARTIAL HYSTER OVARIAN CYST LEFT OVARY MIGRAINES-TOPAMAX IN THE PAST LEFT KNEE, BONE ON BONE ARTHRITIS, NEED KNEE REPLACEMENT HYPOTHYROIDISM-S/P THYROIDECTOMY LUMBAGO WITH SCIATICA, LEFT SIDE LUMBAGO WITH SCIATICA, RIGHT SIDE MAMMOGRAM 08/2018-NORMAL 8 YEAR ASCVD RISK 3.9% NECK PAIN ALLERGIES N.K.D.A. SURGICAL HISTORY THYROIDECTOMY 2008 PARTIAL HYSTERECTOMY- PA 1998 FAMILY HISTORY FATHER: ALIVE 72 YRS, HTN, ARTHRITIS, DIAGNOSED WITH DIABETES MOTHER: ALIVE 71 YRS, HYPOTHYROIDISM, DEPRESSION, HTN SIBLINGS: ALIVE 51 YRS, OBESITY SON(S): ALIVE, ADHD DAUGHTER(S): ALIVE PATERNAL GRAND FATHER: 60 YRS, ALCOHOLISM PATERNAL GRAND MOTHER: 70 YRS, CANCER MATERNAL GRAND FATHER: 70 YRS, TYPE II DIABETES, HTN, MULTIPLE STROKES, DIABETES MATERNAL GRAND MOTHER: 40 YRS, OVARIAN CANCER, 1 SISTER(S) . 2 SON(S) , 2 DAUGHTER(S) . PT REPORTS STRONG FAMILY HISTORY OF COLON CANCER. \NPT REPORTS STRONG FAMIY HISTORY OF DM ON MOTHER SIDE. SOCIAL HISTORY GENERAL: TOBACCO USE ARE YOU A:CURRENT SMOKER ARE YOU INTERESTED IN QUITTING?READY TO QUIT PREVIOUS QUIT ATTEMPTS?YES, WITHIN THE LAST 6 MONTHS. COUNSELED THE PATIENT ON TOBACCO USE, CESSATION [id number]/12/2019 HOW MANY CIGARETTES A DAY DO YOU SMOKE?5 OR LESS HOW SOON AFTER YOU WAKE UP DO YOU SMOKE YOUR FIRST CIGARETTE?AFTER 60 MIN HOW OFTEN DO YOU SMOKE CIGARETTES?SOME DAYS, BUT NOT EVERY DAY PATIENT COUNSELED ON THE DANGERS OF TOBACCO USE AND URGED TO QUIT:02/28/2019 HIV / HEP-C SCREENING HIV TEST OFFERED TO PATIENT:YES DATE OFFERED:08/15/2018 TEST ACCEPTED:NO HEP-C TEST OFFERED TO PATIENT:YES DATE OFFERED:08/15/2018 REASON:PATIENT DECLINED TEST ACCEPTED:NO REASON:PATIENT DECLINED BROCHURE PROVIDED TO PATIENTYES OTHERS AT HOME: . EDUCATION LEVEL OF EDUCATION:COLLEGE DIET: REGULAR. 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?NO PAIN CLINIC PFS, CLERGY, PUBLIC HEALTH REFERRALS HAS THE PATIENT BEEN EDUCATED REGARDING HIS/HER PLAN OF CARE?YES HAS THE PATIENT BEEN EDUCATED REGARDING PAIN, THE RISK FOR PAIN, THE IMPORTANCE OF EFFECTIVE PAIN MANAGEMENT, AND THE PAIN ASSESSMENT PROCESS?YES LATEX QUESTIONNAIRE LATEX ALLERGY : HAVE YOU EVER DEVELOPED ANY TYPE OF REACTION AFTER HANDLING LATEX PRODUCTS SUCH RUBBER GLOVES, CONDOMS, DIAPHRAGMS, BALLOONS, SOCKS, OR UNDERWEAR?NO LATEX ALLERGY : HAVE YOU EVER DEVELOPED ANY TYPE OF REACTION DURING OR AFTER DENTAL APPOINTMENT, VAGINAL/RECTAL EXAMINATION, SURGICAL PROCEDURE, OR ANY OTHER EXPOSURE?NO DATE ASKED : 02/12/2019 LATEX RISK : HAVE YOU EVER HAD ANY DIFFICULTY BREATHING OR HIVES AFTER EATING OR HANDLING ANY FRUITS, OR VEGETABLES; SUCH KIWI, BANANAS, STONE FRUITS, OR CHESTNUTSNO LATEX RISK : DO YOU HAVE A PREVIOUS PERSONAL HISTORY OF MORE THAN NINE SURGERIES, SPINA BIFIDA, OR REPEATED CATHERIZATIONS? NO LATEX RISK : ARE YOU FREQUENTLY EXPOSED TO LATEX PRODUCTS IN YOUR OCCUPATION?NO CAFFEINE CAFFEINE USE?YES 2 CUPS COFFEE DAILY ADVANCE DIRECTIVE ADVANCE DIRECTIVE DISCUSSED WITH PATIENT:YES PT DOES NOT HAVE ANY ADVANCED DIRECTIVES AND SHE DECLINES INFORAMTION ON HCP AT THIS TIME. MORMONISM [id number] ANABAPTISM MARITAL STATUS: . OCCUPATION: [employer]. SEXUAL HX HAD SEX IN THE LAST 12 MONTHS (VAGINAL, ORAL, OR ANAL)?YES WITHMEN ONLY PREVENTION STRATEGIES DISCUSSED:OTHER USE PROTECTION?NO LMP:1998 HAVE YOU EVER HAD AN STD?NO REVIEWED WITH PT 12/01/18 1116 BV. HOSPITALIZATION/MAJOR DIAGNOSTIC PROCEDURE THYROID ISSUES PRIOR TO SX REVIEW OF SYSTEMS REVIEWED BY: PROVIDER: JEREMY SUAZO MD . CONSTITUTIONAL: ANY CHANGE IN YOUR MEDICAL CONDITION? NO . CHILLS NO . FEVER NO . INFECTION: DO YOU HAVE NEW INFECTIONS? NO . DO YOU HAVE HISTORY OF MRSA? NO . MUSCULOSKELETAL: ANY NEW PATTERNS OF PAIN OR NUMBNESS? NO . GASTROENTEROLOGY: ANY NEW CHANGE IN BOWEL CONTROL? NO . GENITOURINARY: ANY NEW CHANGE IN BLADDER CONTROL? NO . IS THERE A CHANCE YOU COULD BE ? NO . HEMATOLOGY/LYMPH: DO YOU TAKE ANY BLOOD THINNERS? (FOR EXAMPLE- COUMADIN, PLAVIX, AGGRENOX, PLATEL, PRADAXA, OR XARELTO) NO . WHEN WAS YOUR LAST DOSE? DATE: TIME: . NEUROLOGY: HAVE YOU FALLEN IN THE PAST 12 MONTHS? NO . ANY NEW EXTREMITY NUMBNESS OR WEAKNESS? NO . CARDIOLOGY: DO YOU HAVE A PACEMAKER OR DEFIBRILLATOR? NO . RESPIRATORY: HAVE YOU BEEN SICK IN THE PAST WEEK? NO . FEVER NO . FLU LIKE SYMPTOMS? NO . COUGH NO . INTEGUMENTARY: DO YOU HAVE ANY RASHES OR OPEN SORES? NO . ALLERGIC/IMMUNO: ARE YOU ALLERGIC TO IV DYE? NO . ANY NEW ALLERGIES? NO . PSYCHIATRIC: DO YOU HAVE THOUGHTS OF HURTING YOURSELF OR SOMEONE ELSE? NO . ARE YOU ABUSED, NEGLECTED, OR IN AN UNSAFE ENVIRONMENT? NO . ENDOCRINOLOGY: ARE YOU DIABETIC? NO . OTHER: DO YOU NEED ANY PRESCRIPTIONS? NO . IF YES, PLEASE LIST: ____ . ANY NEW PROBLEMS WITH YOUR MEDICATIONS? NO . WHEN DID YOU LAST EAT? ____ . WHEN DID YOU LAST DRINK? ____ . WHAT DID YOU LAST DRINK? ____ . NAME OF PERSON DRIVING YOU HOME? ____ . DO YOU HAVE ANY OTHER QUESTIONS OR CONCERNS NO . VITAL SIGNS WT 238.4 LBS, HT 64 IN, BMI 40.92 INDEX, BP 139/74 MM HG, HR 79 /MIN, RR 18 /MIN, TEMP 97.8 F, OXYGEN SAT % 100%, NA INITIALS SC 14:58, REVIEWED BY: EM. EXAMINATION GENERAL EXAMINATION: PATIENT IS ALERT O X 3 AND COOPERATIVE. LUNGS CLEAR, TO AUSCULTATION. HEART: NO MURMURS OR GALLOPS; FACIAL CRANIAL NERVES ARE GROSSLY NORMAL. GOOD SYMMETRY OF FACIAL MUSCLE MOVEMENT. NORMAL VISUAL MARADIAGA. TENDERNESS OVER THE NECK. PAIN INCREASES OVER THE CERVICAL FACET JOINTS WITH EXTENSION AND LATERAL ROTATION OF THE NECK, ESPECIALLY ON THE LEFT SIDE. MRI OF THE CERVICAL SPINE DONE ON 12/13/2018 SHOWS FACET ARTHROPATHY CHANGES. ASSESSMENTS SPONDYLOSIS WITHOUT MYELOPATHY OR RADICULOPATHY, CERVICAL REGION - M47.812 (PRIMARY) TREATMENT SPONDYLOSIS WITHOUT MYELOPATHY OR RADICULOPATHY, CERVICAL REGION CLINICAL NOTES: WE DISCUSSED SEVERAL ISSUES WITH MS. LEBRON'S PAIN MANAGEMENT CASE. DUE TO THE CERVICAL SPONDYLOSIS AND ACUTE PAIN OVER THE LAST MONTH, I WOULD LIKE TO MOVE FORWARD WITH A LEFT C2-C3, C3-C4, AND C4-C5 CERVICAL THERAPEUTIC FACET BLOCK AT THIS TIME. THE PATIENT WOULD LIKE TO MOVE FORWARD WITH IV SEDATION DUE TO DISCOMFORT, PAIN, AND ANXIETY ASSOCIATED WITH THE PROCEDURE. WE DISCUSSED THE BENEFITS, RISKS, AND ALTERNATIVES OF THE INJECTION AND THE PATIENT WOULD LIKE TO PROCEED. I AM LOOKING FOR LONG LASTING PAIN RELIEF FROM THIS INJECTION FOR THE PATIENT. THE PATIENT WILL FOLLOW UP IN SEVERAL WEEKS WITH THE NURSE PRACTITIONER TO SEE HOW THE INJECTION IS HELPING WITH HER PAIN. INSTRUCTIONS WERE GIVEN, QUESTIONS WERE ANSWERED, PATIENT REPORTS UNDERSTANDING AND AGREES WITH THE PLAN. I, IVORY FERRERA, DOCUMENTED THE ABOVE INFORMATION ACTING A SCRIBE FOR DR. SUAZO. I HAVE REVIEWED THE ABOVE DOCUMENT, WRITTEN BY IVORY FLORENCE AND I VERIFY THAT IT IS ACCURATE. . PROCEDURE CODES FA211 ESTABILISHED PATIENT [facility] FACILITY CHARGE [id number] CURRENT MEDS W/DOSAGES DOCUMENTED [id number] PAIN ASSESS POS TOOL F/U PLAN DOC DISPOSITION & COMMUNICATION FOLLOW UP REASON: LT SIDE CTFB W/ IV SEDATE ELECTRONICALLY SIGNED BY JEREMY SUAZO MD, MD ON 04/03/2019 AT 03:19 PM EST DISCLAIMER : THIS IS A VISIT SUMMARY EXTRACTED FROM THE [employer] CHART. IT IS NOT A COPY OF THE [employer] PROGRESS NOTE. MTDD
== END ==
LOC: M PAIN 14:30
PROVIDERS: ATTEND Anesthesiology
DX: M47.812 Spondylosis without myelopathy or radiculopathy, cervical region (principal); E89.0 Postprocedural hypothyroidism; M54.2 Cervicalgia; F17.210 Nicotine dependence, cigarettes, uncomplicated; Z79.899 Other long term (current) drug therapy

== ENCOUNTER → 2019-03-29 | Outpatient (CLI) | payer OTHER ==
[~2019-03-29] MED LIST changes: +BUPIVACAINE HCL 0.25% 30 ML VIAL As Ordered ONE; +ISOVUE-M 300 61% 15ML VIAL (Q9967) As Ordered ONE; +LIDOCAINE 1% SDV INJ 30 ML VIAL As Ordered ONE; +MIDAZOLAM INJ 2 MG/2 ML VIAL (J2250) As Ordered ONE; +NAPR-837 PO; +RIZA10TA58 PO; +ROBA750T4 PO; +TRIAMCINOLONE ACETONIDE SUSP 40 MG/ML VIAL (J3301) As Ordered ONE; +ZONI100C2; +fentaNYL 100 MCG/2 ML INJECTION (J3010) As Ordered ONE
--- NOTE | 2019-03-29 12:59 | REP ---
Partial cervical spine series: Single view. History: Cervical facet injection procedure for pain. 1 minute 58 seconds of fluoroscopy time is reported. Findings: A single last image hold fluoroscopically obtained spot radiograph of the cervical spine documents various needle positions and contrast injections. Electronically Signed by Perez Beltrán MD 03/29/2019 02:19 P
--- NOTE | 2019-04-06 01:00 | ECWPNPC ---
PATIENT NAME: GLADYS LEBRONID : 1970 GENDER: FEMALE VISIT DATE: 03/29/2019 DISCHARGE DATE: 03/29/19 1304 VISIT LOCKED DATE TIME: PHYSICIAN: JEREMY SUAZO MD RESOURCE: JEREMY SUAZO MD REASON FOR APPOINTMENT 1. IV SEDATION, CERVICAL FACET HISTORY OF PRESENT ILLNESS HISTORY OF PRESENT ILLNESS: PAIN THE PATIENT DESCRIBES THE PAIN... FALL RISK SCREENING: SCREENING :NO FALLS REPORTED IN THE LAST YEAR CURRENT MEDICATIONS TAKING LEVOTHYROXINE SODIUM 112 MCG TABLET ORALLY DAILY, NOTES: 03-29-19499 TAKING DULOXETINE HCL 30 MG CAPSULE DELAYED RELEASE PARTICLES 1 CAPSULE ORAL BID, NOTES: 03-28-192099 TAKING GABAPENTIN 300 MG CAPSULE 1 CAPSULE ORALLY THREE TIMES DAILY, NOTES: 03-28-192099 TAKING ZONISAMIDE 50 MG CAPSULE 1 CAPSULE ORALLY TWICE A DAY, NOTES: 03-28-192099 NOT-TAKING NAPROSYN 500 MG TABLET 1 TABLET WITH FOOD OR MILK NEEDED ORALLY EVERY 12 HRS UNKNOWN MAXALT 10 MG TABLET 1 TABLET ORALLY PRN, NOTES: 03-25-19 09 MEDICATION LIST REVIEWED AND RECONCILED WITH THE PATIENT PAST MEDICAL HISTORY SPONDYLOLITHESIS SPINAL STENOSIS THYROID CANCER 2008- SX FOR REMOVAL CERVICAL CANCER- 1998- PARTIAL HYSTER OVARIAN CYST LEFT OVARY MIGRAINES-TOPAMAX IN THE PAST LEFT KNEE, BONE ON BONE ARTHRITIS, NEED KNEE REPLACEMENT HYPOTHYROIDISM-S/P THYROIDECTOMY LUMBAGO WITH SCIATICA, LEFT SIDE LUMBAGO WITH SCIATICA, RIGHT SIDE MAMMOGRAM 08/2018-NORMAL 8 YEAR ASCVD RISK 3.9% NECK PAIN ALLERGIES N.K.D.A. SURGICAL HISTORY THYROIDECTOMY 2008 PARTIAL HYSTERECTOMY- PA 1998 FAMILY HISTORY FATHER: ALIVE 72 YRS, HTN, ARTHRITIS, DIAGNOSED WITH DIABETES MOTHER: ALIVE 71 YRS, HYPOTHYROIDISM, DEPRESSION, HTN SIBLINGS: ALIVE 51 YRS, OBESITY SON(S): ALIVE, ADHD DAUGHTER(S): ALIVE PATERNAL GRAND FATHER: 60 YRS, ALCOHOLISM PATERNAL GRAND MOTHER: 70 YRS, CANCER MATERNAL GRAND FATHER: 70 YRS, TYPE II DIABETES, HTN, MULTIPLE STROKES, DIABETES MATERNAL GRAND MOTHER: 40 YRS, OVARIAN CANCER, 1 SISTER(S) . 2 SON(S) , 2 DAUGHTER(S) . PT REPORTS STRONG FAMILY HISTORY OF COLON CANCER. \NPT REPORTS STRONG FAMIY HISTORY OF DM ON MOTHER SIDE. SOCIAL HISTORY GENERAL: TOBACCO USE ARE YOU A:CURRENT SMOKER HOW OFTEN DO YOU SMOKE CIGARETTES?SOME DAYS, BUT NOT EVERY DAY HOW SOON AFTER YOU WAKE UP DO YOU SMOKE YOUR FIRST CIGARETTE?AFTER 60 MIN HOW MANY CIGARETTES A DAY DO YOU SMOKE?5 OR LESS ARE YOU INTERESTED IN QUITTING?READY TO QUIT PATIENT COUNSELED ON THE DANGERS OF TOBACCO USE AND URGED TO QUIT:02/28/2019 COUNSELED THE PATIENT ON TOBACCO USE, CESSATION [id number]/12/2019 PREVIOUS QUIT ATTEMPTS?YES, WITHIN THE LAST 6 MONTHS. HIV / HEP-C SCREENING HIV TEST OFFERED TO PATIENT:YES DATE OFFERED:08/15/2018 TEST ACCEPTED:NO HEP-C TEST OFFERED TO PATIENT:YES DATE OFFERED:08/15/2018 REASON:PATIENT DECLINED TEST ACCEPTED:NO REASON:PATIENT DECLINED BROCHURE PROVIDED TO PATIENTYES OTHERS AT HOME: . EDUCATION LEVEL OF EDUCATION:COLLEGE DIET: REGULAR. 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 NEEDED?NO PAIN CLINIC PFS, CLERGY, PUBLIC HEALTH REFERRALS HAS THE PATIENT BEEN EDUCATED REGARDING HIS/HER PLAN OF CARE?YES HAS THE PATIENT BEEN EDUCATED REGARDING PAIN, THE RISK FOR PAIN, THE IMPORTANCE OF EFFECTIVE PAIN MANAGEMENT, AND THE PAIN ASSESSMENT PROCESS?YES LATEX QUESTIONNAIRE LATEX ALLERGY : HAVE YOU EVER DEVELOPED ANY TYPE OF REACTION AFTER HANDLING LATEX PRODUCTS SUCH RUBBER GLOVES, CONDOMS, DIAPHRAGMS, BALLOONS, SOCKS, OR UNDERWEAR?NO LATEX ALLERGY : HAVE YOU EVER DEVELOPED ANY TYPE OF REACTION DURING OR AFTER DENTAL APPOINTMENT, VAGINAL/RECTAL EXAMINATION, SURGICAL PROCEDURE, OR ANY OTHER EXPOSURE?NO DATE ASKED : 02/12/2019 LATEX RISK : HAVE YOU EVER HAD ANY DIFFICULTY BREATHING OR HIVES AFTER EATING OR HANDLING ANY FRUITS, OR VEGETABLES; SUCH KIWI, BANANAS, STONE FRUITS, OR CHESTNUTSNO LATEX RISK : DO YOU HAVE A PREVIOUS PERSONAL HISTORY OF MORE THAN NINE SURGERIES, SPINA BIFIDA, OR REPEATED CATHERIZATIONS? NO LATEX RISK : ARE YOU FREQUENTLY EXPOSED TO LATEX PRODUCTS IN YOUR OCCUPATION?NO CAFFEINE CAFFEINE USE?YES 2 CUPS COFFEE DAILY ADVANCE DIRECTIVE ADVANCE DIRECTIVE DISCUSSED WITH PATIENT:YES PT DOES NOT HAVE ANY ADVANCED DIRECTIVES AND SHE DECLINES INFORAMTION ON HCP AT THIS TIME. CONGREGATION [id number] SABIANIST MARITAL STATUS: . OCCUPATION: FT [employer]. SEXUAL HX HAD SEX IN THE LAST 12 MONTHS (VAGINAL, ORAL, OR ANAL)?YES WITHMEN ONLY PREVENTION STRATEGIES DISCUSSED:OTHER USE PROTECTION?NO LMP:1998 HAVE YOU EVER HAD AN STD?NO REVIEWED WITH PT 12/01/18 1116 BV. HOSPITALIZATION/MAJOR DIAGNOSTIC PROCEDURE THYROID ISSUES PRIOR TO SX REVIEW OF SYSTEMS REVIEWED BY: PROVIDER: . CONSTITUTIONAL: ANY CHANGE IN YOUR MEDICAL CONDITION? NO . CHILLS NO . FEVER NO . INFECTION: DO YOU HAVE NEW INFECTIONS? NO . DO YOU HAVE HISTORY OF MRSA? NO . MUSCULOSKELETAL: ANY NEW PATTERNS OF PAIN OR NUMBNESS? NO . GASTROENTEROLOGY: ANY NEW CHANGE IN BOWEL CONTROL? NO . GENITOURINARY: ANY NEW CHANGE IN BLADDER CONTROL? NO . IS THERE A CHANCE YOU COULD BE ? NO . HEMATOLOGY/LYMPH: DO YOU TAKE ANY BLOOD THINNERS? (FOR EXAMPLE- COUMADIN, PLAVIX, AGGRENOX, PLATEL, PRADAXA, OR XARELTO) NO . WHEN WAS YOUR LAST DOSE? DATE: TIME: . NEUROLOGY: HAVE YOU FALLEN IN THE PAST 12 MONTHS? NO . ANY NEW EXTREMITY NUMBNESS OR WEAKNESS? NO . CARDIOLOGY: DO YOU HAVE A PACEMAKER OR DEFIBRILLATOR? NO . RESPIRATORY: HAVE YOU BEEN SICK IN THE PAST WEEK? NO . FEVER NO . FLU LIKE SYMPTOMS? NO . COUGH NO . INTEGUMENTARY: DO YOU HAVE ANY RASHES OR OPEN SORES? NO . ALLERGIC/IMMUNO: ARE YOU ALLERGIC TO IV DYE? NO . ANY NEW ALLERGIES? NO . PSYCHIATRIC: DO YOU HAVE THOUGHTS OF HURTING YOURSELF OR SOMEONE ELSE? NO . ARE YOU ABUSED, NEGLECTED, OR IN AN UNSAFE ENVIRONMENT? NO . ENDOCRINOLOGY: ARE YOU DIABETIC? NO . OTHER: DO YOU NEED ANY PRESCRIPTIONS? NO . IF YES, PLEASE LIST: ____ . ANY NEW PROBLEMS WITH YOUR MEDICATIONS? NO . WHEN DID YOU LAST EAT? ____[id number] . WHEN DID YOU LAST DRINK? ____[phone] . WHAT DID YOU LAST DRINK? ____WATER . NAME OF PERSON DRIVING YOU HOME? ____TAMARA . DO YOU HAVE ANY OTHER QUESTIONS OR CONCERNS NO . VITAL SIGNS WT 238.4 LBS, HT 64 IN, BMI 40.92 INDEX, BP 133/79 MM HG, HR 84 /MIN, RR 18 /MIN, TEMP 97.2 F, OXYGEN SAT % 100%, NA INITIALS SC 10:43, REVIEWED BY: KG. ASSESSMENTS SPONDYLOSIS OF CERVICAL REGION WITHOUT MYELOPATHY OR RADICULOPATHY - M47.812 (PRIMARY) TREATMENT SPONDYLOSIS OF CERVICAL REGION WITHOUT MYELOPATHY OR RADICULOPATHY SMC FACET BLOCK (PAIN)[id number] PROCEDURES PN CERVICAL FACET BLOCK LOW BILATERAL CERVICAL PRE PROCEDURE DIAGNOSIS CERVICAL SPONDYLOSIS POST PROCEDURE DIAGNOSIS CERVICAL SPONDYLOSIS PROCEDURE LEFT C2-C3, LEFT C3-C4, AND LEFT C4-C5 CERVICAL THERAPEUTIC FACET BLOCK SURGEON DR. 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 I EVALUATED THE PATIENT AND REVIEWED THE CHART. I WENT OVER THE RISKS, ALTERNATIVES, AND BENEFITS ASSOCIATED WITH THIS PROCEDURE. THE PATIENT WOULD LIKE TO PROCEED AND GIVES CONSENT TO PERFORM THE PROCEDURE. THE PATIENT WOULD LIKE TO MOVE FORWARD WITH IV SEDATION DUE TO DISCOMFORT, PAIN, AND ANXIETY ASSOCIATED WITH THE PROCEDURE. THE PATIENT DENIES UNEXPLAINABLE WEIGHT LOSS, FEVER, CHILLS, OR NEW CHANGES IN URINARY OR BOWEL CONTROL. DESCRIPTION OF PROCEDURE THE PATIENT WAS BROUGHT TO THE PROCEDURE ROOM AND PLACED IN THE PRONE POSITION. THE CERVICOTHORACIC AREA WAS CLEANED WITH CHLORAPREP SOLUTION AND DRAPED ASEPTICALLY. THE PROCEDURE WAS DONE UNDER STERILE CONDITIONS. I CHECKED LATERALITY AND THE LEVEL WHERE THE PROCEDURE WAS GOING TO BE PERFORMED WITH THE PATIENT AND THE SUPPORTING STAFF AT THE MOMENT OF THE TIME OUT IN THE PROCEDURE ROOM. UNDER FLUOROSCOPIC GUIDANCE, TARGET POINT WAS SELECTED AT THE LEFT C2-C3, LEFT C3-C4, AND LEFT C4-C5 CERVICAL FACET JOINTS. TARGET POINTS WERE SELECTED AFTER LATERAL ROTATION AND TILT OF THE MAGNIFIER OF THE C-ARM. LIDOCAINE 0.5% WAS USED TO NUMB THE SKIN AND THE SUBCUTANEOUS TISSUE BELOW IT. SPINAL NEEDLES, 22-GAUGE, WERE ADVANCED UNDER FLUOROSCOPIC GUIDANCE AND FOLLOWING PATIENT FEEDBACK UNTIL THE TARGETS WERE TOUCHED. THE POSITION OF THE NEEDLES WAS VERIFIED WITH AP AND LATERAL VIEWS. AFTER PROPER POSITION OF THE NEEDLES WAS ACHIEVED, ISOVUE M DYE 30, 0.1 ML WAS INJECTED SHOWING SPREAD OF THE DYE. THEN A SOLUTION OF 0.9 ML OF BUPIVACAINE 0.125% AND KENALOG 10 MG WAS INJECTED AT EACH SITE. THERE WAS NO EVIDENCE OF BLOOD, PARESTHESIA OR CEREBROSPINAL FLUID DURING THE PROCEDURE. THE PATIENT WAS SENT TO THE RECOVERY ROOM. THE PATIENT WAS MOVING THE EXTREMITIES AND DOING WELL. THERE WAS NO COMPLICATION DURING THE PROCEDURE. PATIENT RECEIVED VERSED 2 MG AND FENTANYL 200 MCG IV DIVIDED DOSES. FACE TO FACE TIME WAS 11 MINUTES. FLUOROSCOPY TIME WAS 1 MINUTE 58 SECONDS. POST PROCEDURE NOTE THE PATIENT WILL BE SEEN IN A FOLLOW UP IN THE NEXT FEW WEEKS. INSTRUCTIONS WERE GIVEN, QUESTIONS WERE ANSWERED, AND THE PATIENT EXPRESSED UNDERSTANDING AND AGREES WITH THE PLAN. I, IVORY FERRERA, DOCUMENTED THE ABOVE INFORMATION ACTING A SCRIBE FOR DR. SUAZO. I HAVE REVIEWED THE ABOVE DOCUMENT, WRITTEN BY IVORY FERRERA SCRIBE AND I VERIFY THAT IT IS ACCURATE. PROCEDURE CODES 82547 INJ PARAVERT F JNT C/T 1 LEV, [place]IF[place]: [place] 85375 INJ PARAVERT F JNT C/T 2 LEV, [place]: [place] 22231 INJ PARAVERT F JNT C/T 3 LEV, MODIFIERS: LT 6045F RADXPS IN END [id number] PXD 22748 MOD SED SAME PHYS/QHP 5/>YRS DISPOSITION & COMMUNICATION FOLLOW UP 3 WEEKS ELECTRONICALLY SIGNED BY JEREMY SUAZO MD, MD ON 04/05/2019 AT 02:02 PM EST DISCLAIMER : THIS IS A VISIT SUMMARY EXTRACTED FROM THE [employer] CHART. IT IS NOT A COPY OF THE [employer] PROGRESS NOTE. MTDD
== END ==
LOC: M PAIN 10:30
PROVIDERS: ATTEND Anesthesiology
DX: M47.812 Spondylosis without myelopathy or radiculopathy, cervical region (principal)
CPT/HCPCS: 64490; 64491; 64492; 99152; J2250; J3010; J3301; Q9967

== ENCOUNTER 2019-04-11 11:24 | Emergency (ER) | payer OTHER ==
[~2019-04-11] VITALS: Ht 162.6 cm; Wt 106.8 kg
[~2019-04-11 11:24] MED LIST changes: -BUPIVACAINE HCL 0.25% 30 ML VIAL As Ordered ONE; -ISOVUE-M 300 61% 15ML VIAL (Q9967) As Ordered ONE; -LIDOCAINE 1% SDV INJ 30 ML VIAL As Ordered ONE; -MIDAZOLAM INJ 2 MG/2 ML VIAL (J2250) As Ordered ONE; -NAPR-837 PO; -RIZA10TA58 PO; -ROBA750T4 PO; -TRIAMCINOLONE ACETONIDE SUSP 40 MG/ML VIAL (J3301) As Ordered ONE; -ZONI100C2; -fentaNYL 100 MCG/2 ML INJECTION (J3010) As Ordered ONE
[2019-04-11] MEDS ORDERED: ZONI100C2 (11:33)
[2019-04-11] MEDS ORDERED: LEVO112T2 PO (11:57)
[2019-04-11] MEDS ORDERED: RIZA10TA58 PO (12:00)
[2019-04-11 12:03] VITALS: BP 142/94
[2019-04-11] MEDS ORDERED: IBUPROFEN 600 MG TAB PO ONE (12:15)
[2019-04-11] MEDS ORDERED: ACETAMINOPHEN TAB 650MG DOSE (2X325MG) PO ONE (12:15)
[2019-04-11] MEDS ORDERED: NAPR-837 PO (12:22)
[2019-04-11] MEDS ORDERED: ROBA750T4 PO (12:22)
== END 2019-04-11 12:38 | disposition home or self-care (01) ==
LOC: M ED 11:24
DX: S39.012A Strain of muscle, fascia and tendon of lower back, initial encounter (principal); S70.11XA Contusion of right thigh, initial encounter; W22.8XXA Striking against or struck by other objects, initial encounter; Y92.89 Other specified places as the place of occurrence of the external cause; Y99.0 Civilian activity done for income or pay; E03.9 Hypothyroidism, unspecified; G43.909 Migraine, unspecified, not intractable, without status migrainosus; Z79.890 Hormone replacement therapy; Z79.899 Other long term (current) drug therapy

== ENCOUNTER → 2019-06-05 | Outpatient (CLI) | payer OTHER ==
[~2019-06-05] MED LIST changes: +NAPR-837 PO; +RIZA10TA58 PO; +ROBA750T4 PO; +ZONI100C17; +ZONI25CA13 PO; -ZONI25CA2 PO
--- NOTE | 2019-06-07 01:41 | ECWPNPC ---
PATIENT NAME: GLADYS LEBRON [place]OT : 1970 GENDER: FEMALE VISIT DATE: 06/05/2019 DISCHARGE DATE: 06/05/19 1213 VISIT LOCKED DATE TIME: PHYSICIAN: LES ADHIKARI RESOURCE: LES ADHIKARI REASON FOR APPOINTMENT 1. POST FACET HISTORY OF PRESENT ILLNESS HISTORY OF PRESENT ILLNESS: PAIN THE PATIENT DESCRIBES THE PAIN... 48-YEAR-OLD FEMALE IN FOR POST FACET BLOCK FOLLOW-UP. SHE RATES HER PAIN CURRENTLY AT A 9 OUT OF 10 AND DESCRIBES IT ACHING, SORE, TENDER, AND SHOOTING. SHE ADMITS THAT THE FACET BLOCK HELPED APPROXIMATELY FOR 1 WEEK. SHE DOES ADMIT TO RADICULAR SYMPTOMS DOWN HER RIGHT ARM. FALL RISK SCREENING: SCREENING :NO FALLS REPORTED IN THE LAST YEAR CURRENT MEDICATIONS TAKING LEVOTHYROXINE SODIUM 125 MCG TABLET 1 TABLET IN THE MORNING ON AN EMPTY STOMACH ORALLY ONCE A DAY TAKING DULOXETINE HCL 30 MG CAPSULE DELAYED RELEASE PARTICLES 1 CAPSULE ORAL BID TAKING GABAPENTIN 300 MG CAPSULE 1 CAPSULE ORALLY THREE TIMES DAILY TAKING ZONISAMIDE 100 MG CAPSULE 1 CAPSULE ORALLY TWICE A DAY TAKING MAXALT 10 MG TABLET 1 TABLET ORALLY PRN TAKING PEPCID 40 MG TABLET 1 TABLET AT BEDTIME ORALLY ONCE A DAY MEDICATION LIST REVIEWED AND RECONCILED WITH THE PATIENT PAST MEDICAL HISTORY SPONDYLOLITHESIS SPINAL STENOSIS THYROID CANCER 2008- SX FOR REMOVAL CERVICAL CANCER- 1998- PARTIAL HYSTER OVARIAN CYST LEFT OVARY MIGRAINES-TOPAMAX IN THE PAST LEFT KNEE, BONE ON BONE ARTHRITIS, NEED KNEE REPLACEMENT HYPOTHYROIDISM-S/P THYROIDECTOMY LUMBAGO WITH SCIATICA, LEFT SIDE LUMBAGO WITH SCIATICA, RIGHT SIDE MAMMOGRAM 08/2018-NORMAL 8 YEAR ASCVD RISK 3.9% NECK SP[facility]-HYS-EWN OF BRAIN, EMG FOLLOWS Rosita LARSEN CARPAL TUNNEL SYNDROME-EMG FOLLOWS Rosita LARSEN ALLERGIES N.K.D.A. SURGICAL HISTORY THYROIDECTOMY 2008 PARTIAL HYSTERECTOMY- PA 1998 FAMILY HISTORY FATHER: ALIVE 72 YRS, HTN, ARTHRITIS, DIAGNOSED WITH DIABETES MOTHER: ALIVE 71 YRS, HYPOTHYROIDISM, DEPRESSION, HTN SIBLINGS: ALIVE 51 YRS, OBESITY SON(S): ALIVE, ADHD DAUGHTER(S): ALIVE PATERNAL GRAND FATHER: 60 YRS, ALCOHOLISM PATERNAL GRAND MOTHER: 70 YRS, CANCER MATERNAL GRAND FATHER: 70 YRS, TYPE II DIABETES, HTN, MULTIPLE STROKES, DIABETES MATERNAL GRAND MOTHER: 40 YRS, OVARIAN CANCER, 1 SISTER(S) . 2 SON(S) , 2 DAUGHTER(S) . PT REPORTS STRONG FAMILY HISTORY OF COLON CANCER. \NPT REPORTS STRONG FAMIY HISTORY OF DM ON MOTHER SIDE. SOCIAL HISTORY GENERAL: TOBACCO USE ARE YOU A:CURRENT SMOKER ARE YOU INTERESTED IN QUITTING?READY TO QUIT PREVIOUS QUIT ATTEMPTS?YES, WITHIN THE LAST 6 MONTHS. COUNSELED THE PATIENT ON TOBACCO USE, CESSATION [id number]/21/2020 HOW MANY CIGARETTES A DAY DO YOU SMOKE?5 OR LESS HOW SOON AFTER YOU WAKE UP DO YOU SMOKE YOUR FIRST CIGARETTE?AFTER 60 MIN HOW OFTEN DO YOU SMOKE CIGARETTES?SOME DAYS, BUT NOT EVERY DAY PATIENT COUNSELED ON THE DANGERS OF TOBACCO USE AND URGED TO QUIT:02/28/2019 HIV / HEP-C SCREENING HIV TEST OFFERED TO PATIENT:YES DATE OFFERED:08/15/2018 TEST ACCEPTED:NO HEP-C TEST OFFERED TO PATIENT:YES DATE OFFERED:08/15/2018 REASON:PATIENT DECLINED TEST ACCEPTED:NO REASON:PATIENT DECLINED BROCHURE PROVIDED TO PATIENTYES OTHERS AT HOME: . EDUCATION LEVEL OF EDUCATION:COLLEGE DIET: REGULAR. 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?NO PAIN CLINIC PFS, CLERGY, PUBLIC HEALTH REFERRALS HAS THE PATIENT BEEN EDUCATED REGARDING HIS/HER PLAN OF CARE?YES HAS THE PATIENT BEEN EDUCATED REGARDING PAIN, THE RISK FOR PAIN, THE IMPORTANCE OF EFFECTIVE PAIN MANAGEMENT, AND THE PAIN ASSESSMENT PROCESS?YES LATEX QUESTIONNAIRE LATEX ALLERGY : HAVE YOU EVER DEVELOPED ANY TYPE OF REACTION AFTER HANDLING LATEX PRODUCTS SUCH RUBBER GLOVES, CONDOMS, DIAPHRAGMS, BALLOONS, SOCKS, OR UNDERWEAR?NO LATEX ALLERGY : HAVE YOU EVER DEVELOPED ANY TYPE OF REACTION DURING OR AFTER DENTAL APPOINTMENT, VAGINAL/RECTAL EXAMINATION, SURGICAL PROCEDURE, OR ANY OTHER EXPOSURE?NO DATE ASKED : 04/10/2019 LATEX RISK : HAVE YOU EVER HAD ANY DIFFICULTY BREATHING OR HIVES AFTER EATING OR HANDLING ANY FRUITS, OR VEGETABLES; SUCH KIWI, BANANAS, STONE FRUITS, OR CHESTNUTSNO LATEX RISK : DO YOU HAVE A PREVIOUS PERSONAL HISTORY OF MORE THAN NINE SURGERIES, SPINA BIFIDA, OR REPEATED CATHERIZATIONS? NO LATEX RISK : ARE YOU FREQUENTLY EXPOSED TO LATEX PRODUCTS IN YOUR OCCUPATION?NO CAFFEINE CAFFEINE USE?YES 2 CUPS COFFEE DAILY ADVANCE DIRECTIVE ADVANCE DIRECTIVE DISCUSSED WITH PATIENT:YES PT DOES NOT HAVE ANY ADVANCED DIRECTIVES AND SHE DECLINES INFORAMTION ON HCP AT THIS TIME. EPISCOPALIAN [id number] JEWISH MARITAL STATUS: . OCCUPATION: FT [employer]. SEXUAL HX HAD SEX IN THE LAST 12 MONTHS (VAGINAL, ORAL, OR ANAL)?YES WITHMEN ONLY PREVENTION STRATEGIES DISCUSSED:OTHER USE PROTECTION?NO LMP:1998 HAVE YOU EVER HAD AN STD?NO REVIEWED WITH PT 12/01/18 1116 BV. HOSPITALIZATION/MAJOR DIAGNOSTIC PROCEDURE THYROID ISSUES PRIOR TO SX REVIEW OF SYSTEMS REVIEWED BY: PROVIDER: BRANDIE ADHIKARI JUDGE'S CLERK-C . CONSTITUTIONAL: ANY CHANGE IN YOUR MEDICAL CONDITION? NO . CHILLS NO . FEVER NO . INFECTION: DO YOU HAVE NEW INFECTIONS? NO . DO YOU HAVE HISTORY OF MRSA? NO . MUSCULOSKELETAL: ANY NEW PATTERNS OF PAIN OR NUMBNESS? YES, LEFT NECK PAIN IS WORSE . GASTROENTEROLOGY: ANY NEW CHANGE IN BOWEL CONTROL? NO . GENITOURINARY: ANY NEW CHANGE IN BLADDER CONTROL? NO . IS THERE A CHANCE YOU COULD BE ? NO . HEMATOLOGY/LYMPH: DO YOU TAKE ANY BLOOD THINNERS? (FOR EXAMPLE- COUMADIN, PLAVIX, AGGRENOX, PLATEL, PRADAXA, OR XARELTO) NO . WHEN WAS YOUR LAST DOSE? DATE: TIME: . NEUROLOGY: HAVE YOU FALLEN IN THE PAST 12 MONTHS? YES, FELL RECENTLY FROM WEAKNESS AND LOSS OF BALANCE, PT DENIES INJURIES . ANY NEW EXTREMITY NUMBNESS OR WEAKNESS? YES, RIGHT ARM . CARDIOLOGY: DO YOU HAVE A PACEMAKER OR DEFIBRILLATOR? NO . RESPIRATORY: HAVE YOU BEEN SICK IN THE PAST WEEK? NO . FEVER NO . FLU LIKE SYMPTOMS? NO . COUGH NO . INTEGUMENTARY: DO YOU HAVE ANY RASHES OR OPEN SORES? NO . ALLERGIC/IMMUNO: ARE YOU ALLERGIC TO IV DYE? NO . ANY NEW ALLERGIES? NO . PSYCHIATRIC: DO YOU HAVE THOUGHTS OF HURTING YOURSELF OR SOMEONE ELSE? NO . ARE YOU ABUSED, NEGLECTED, OR IN AN UNSAFE ENVIRONMENT? NO . ENDOCRINOLOGY: ARE YOU DIABETIC? NO . OTHER: DO YOU NEED ANY PRESCRIPTIONS? NO . IF YES, PLEASE LIST: ____ . ANY NEW PROBLEMS WITH YOUR MEDICATIONS? NO . WHEN DID YOU LAST EAT? ____ . WHEN DID YOU LAST DRINK? ____ . WHAT DID YOU LAST DRINK? ____ . NAME OF PERSON DRIVING YOU HOME? ____ . DO YOU HAVE ANY OTHER QUESTIONS OR CONCERNS NO . VITAL SIGNS WT 235 LBS, HT 64 IN, BMI 40.33 INDEX, BP 136/79 MM HG, HR 75 /MIN, RR 16 /MIN, TEMP 98.6 F, OXYGEN SAT % 99, REVIEWED BY: EM. EXAMINATION GENERAL EXAMINATION: GENERALNO ACUTE DISTRESS, WELL NOURISHED AND HYDRATED. PSYCHAPPROPRIATE MOOD AND AFFECT . NECK:POINT TENDER ALONG CERVICAL SPINE, SURROUNDING SKIN SHOWS NO ERYTHEMA, ECCHYMOSIS, INCREASED WARMTH, AND/OR SKIN ERUPTIONS NOTED. PATIENT DOES ENDORSE INCREASED PAIN ON THE RIGHT SIDE WHEN ASKED TO LIFT ARMS AGAINST RESISTANCE. . LUNGS:CLEAR TO AUSCULTATION BILATERALLY, NO WHEEZES, RHONCHI, RALES. HEART:NO MURMURS, REGULAR RATE AND RHYTHM. ASSESSMENTS SPONDYLOSIS OF CERVICAL SPINE WITH RADICULOPATHY - M47.22 (PRIMARY) TREATMENT SPONDYLOSIS OF CERVICAL SPINE WITH RADICULOPATHY NOTES: PJ C4-C5, C5-C6. CLINICAL NOTES: 48-YEAR-OLD FEMALE IN FOR CHRONIC PAIN FOLLOW-UP. GIVEN PRESENTING SYMPTOMS AND RESULTS OF PHYSICAL EXAMINATION RECOMMENDED PJ WITH POSTPROCEDURAL FOLLOW-UP. PATIENT HAS EXPRESSED UNDERSTANDING OF AND WAS IN AGREEMENT WITH TREATMENT PLAN. GIVEN TIME TO ASK QUESTIONS AND EXPRESS CONCERNS. PROCEDURE CODES FA211 ESTABILISHED PATIENT [facility] CHARGE DISPOSITION & COMMUNICATION FOLLOW UP POSTPROCEDURE (REASON: PJ C4-C5,C5-C6) ELECTRONICALLY SIGNED BY ESME PURVIS ON 06/06/2019 AT 08:42 AM EST DISCLAIMER : THIS IS A VISIT SUMMARY EXTRACTED FROM THE [employer] CHART. IT IS NOT A COPY OF THE [employer] PROGRESS NOTE. ARMIN
== END ==
LOC: M PAIN 11:30
PROVIDERS: ATTEND Family Medicine
DX: M47.22 Other spondylosis with radiculopathy, cervical region (principal); G43.909 Migraine, unspecified, not intractable, without status migrainosus; E03.9 Hypothyroidism, unspecified; F17.210 Nicotine dependence, cigarettes, uncomplicated; E66.01 Morbid (severe) obesity due to excess calories; Z68.41 Body mass index [BMI] 40.0-44.9, adult; Z79.899 Other long term (current) drug therapy

== ENCOUNTER → 2019-07-05 | Outpatient (CLI) | payer OTHER ==
[2019-07-05 18:20] LABS: FREE T4 1.06 NG/DL (0.76-1.46); THYROID STIMULATING HORMONE 6.89 uIU/ML (0.358-3.740)
== END ==
LOC: M PLALAB 12:30
PROVIDERS: ATTEND Physician Assistant Medical
DX: E89.0 Postprocedural hypothyroidism (principal)

== ENCOUNTER → 2019-07-19 | Outpatient (CLI) | payer OTHER ==
[~2019-07-19] MED LIST changes: +ISOVUE-M 300 61% 15ML VIAL (Q9967) As Ordered ONE; +LIDOCAINE 1% SDV INJ 30 ML VIAL As Ordered ONE; +methylPREDNISolone SUSP 40 MG/ML (DEPO-medrol) VIAL (J1030) As Ordered ONE
--- NOTE | 2019-07-25 02:45 | ECWPNPC ---
PATIENT NAME: GLADYS LEBRON : 1970 GENDER: FEMALE VISIT DATE: 07/19/2019 DISCHARGE DATE: 07/19/19 1004 VISIT LOCKED DATE TIME: PHYSICIAN: JEREMY SUAZO MD RESOURCE: JEREMY SUAZO MD REASON FOR APPOINTMENT 1. W/C RT NECK AND ARM HISTORY OF PRESENT ILLNESS HISTORY OF PRESENT ILLNESS: PAIN THE PATIENT DESCRIBES THE PAIN... 48 YEAR OLD FEMALE PATIENT WITH A HISTORY OF CHRONIC RIGHT NECK AND ARM PAIN. THE PATIENT DESCRIBES THE PAIN ACHING, BURNING, SORE, TENDER, STABBING, SHOOTING, AND CONTINUOUS WITH A PAIN SCORE OF 8-10/10 DEPENDING ON PHYSICAL ACTIVITY. 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 THE PATIENT STATES SHE STRAINED HER MOSTLY HER RIGHT ARM, AND ALSO HER RIGHT SHOULDER AND NECK DUE TO THE HEAVY WEIGHT OF THE WORK STATION AND IT HIT HER LEG WELL. THE PATIENT STATES SHE WENT TO THE ER AFTER THE ACCIDENT AND HAS NOT WORKED SINCE THE INJURY DAY. THE PATIENT SAYS SHE EXPERIENCES NUMBNESS IN HER RIGHT HAND, TREMBLING IN HER RIGHT HAND AND INDEX FINGER, AND A "CURRENT" FEELING. THE PATIENT SAYS HER PAIN IS AFFECTING HER ABILITY TO PERFORM HER DAILY ACTIVITIES SUCH COOKING, WRITING, TYPING, WORKING, LIFTING, AND SHE HAD TO CUT HER HAIR DUE TO NOT BEING ABLE TO WASH HER HAIR WITH HER RIGHT HAND. PATIENT DENIES UNEXPLAINABLE WEIGHT LOSS, FEVER, CHILLS, NEW CHANGES ON HER URINARY OR BOWEL CONTROL. FALL RISK SCREENING: SCREENING :NO FALLS REPORTED IN THE LAST YEAR CURRENT MEDICATIONS TAKING ZONISAMIDE 100 MG CAPSULE 1 CAPSULE ORALLY TWICE A DAY, NOTES: 07/17 7PM TAKING MAXALT 10 MG TABLET 1 TABLET ORALLY PRN, NOTES: 07/17 2PM TAKING PEPCID 40 MG TABLET 1 TABLET AT BEDTIME ORALLY ONCE A DAY, NOTES: 07/17 7PM TAKING DULOXETINE HCL 30 MG CAPSULE DELAYED RELEASE PARTICLES 1 CAPSULE ORAL THREE TIMES DAILY, NOTES: 07/17 7PM TAKING GABAPENTIN 300 MG CAPSULE 1 CAPSULE ORALLY BEFORE BEDTIME, NOTES: 07/17 7PM TAKING VOLTAREN 1 % GEL 2GMS TO LEFT KNEE, FRONT, BACK TRANSDERMAL FOUR TIMES DAILY NEEDED, NOTES: 07/17 8PM TAKING GABAPENTIN 100 MG CAPSULE 2 CAPSULE ORALLY IN AM, 2 CAPSULES IN AFTERNOON, NOTES: 07/17 12NOON TAKING LEVOTHYROXINE SODIUM 150 MCG TABLET 1 TABLET IN THE MORNING ON AN EMPTY STOMACH ORALLY ONCE A DAY, NOTES: 07/18 6AM MEDICATION LIST REVIEWED AND RECONCILED WITH THE PATIENT PAST MEDICAL HISTORY SPONDYLOLITHESIS SPINAL STENOSIS THYROID CANCER 2008- SX FOR REMOVAL CERVICAL CANCER- 1998- PARTIAL HYSTER OVARIAN CYST LEFT OVARY MIGRAINES-TOPAMAX IN THE PAST LEFT KNEE, BONE ON BONE ARTHRITIS, NEED KNEE REPLACEMENT HYPOTHYROIDISM-S/P THYROIDECTOMY LUMBAGO WITH SCIATICA, LEFT SIDE LUMBAGO WITH SCIATICA, RIGHT SIDE MAMMOGRAM 08/2018-NORMAL 8 YEAR ASCVD RISK 3.9% NECK [id number] OF BRAIN, EMG FOLLOWS Rosita LARSEN CARPAL TUNNEL SYNDROME-EMG FOLLOWS Rosita LARSEN ALLERGIES N.K.D.A. SURGICAL HISTORY THYROIDECTOMY 2008 PARTIAL HYSTERECTOMY- PA 1998 FAMILY HISTORY FATHER: ALIVE 72 YRS, HTN, ARTHRITIS, DIAGNOSED WITH DIABETES MOTHER: ALIVE 71 YRS, HYPOTHYROIDISM, DEPRESSION, HTN SIBLINGS: ALIVE 51 YRS, OBESITY SON(S): ALIVE, ADHD DAUGHTER(S): ALIVE PATERNAL GRAND FATHER: 60 YRS, ALCOHOLISM PATERNAL GRAND MOTHER: 70 YRS, CANCER MATERNAL GRAND FATHER: 70 YRS, TYPE II DIABETES, HTN, MULTIPLE STROKES, DIABETES MATERNAL GRAND MOTHER: 40 YRS, OVARIAN CANCER, 1 SISTER(S) . 2 SON(S) , 2 DAUGHTER(S) . PT REPORTS STRONG FAMILY HISTORY OF COLON CANCER. \\NPT REPORTS STRONG FAMIY HISTORY OF DM ON MOTHER SIDE. SOCIAL HISTORY GENERAL: TOBACCO USE ARE YOU A:CURRENT SMOKER ARE YOU INTERESTED IN QUITTING?READY TO QUIT PREVIOUS QUIT ATTEMPTS?YES, WITHIN THE LAST 6 MONTHS. COUNSELED THE PATIENT ON TOBACCO USE, CESSATION [id number]/02/2020 HOW MANY CIGARETTES A DAY DO YOU SMOKE?5 OR LESS HOW SOON AFTER YOU WAKE UP DO YOU SMOKE YOUR FIRST CIGARETTE?AFTER 60 MIN HOW OFTEN DO YOU SMOKE CIGARETTES?SOME DAYS, BUT NOT EVERY DAY PATIENT COUNSELED ON THE DANGERS OF TOBACCO USE AND URGED TO QUIT:02/28/2019 HIV / HEP-C SCREENING HIV TEST OFFERED TO PATIENT:YES DATE OFFERED:08/15/2018 TEST ACCEPTED:NO HEP-C TEST OFFERED TO PATIENT:YES DATE OFFERED:08/15/2018 REASON:PATIENT DECLINED TEST ACCEPTED:NO REASON:PATIENT DECLINED BROCHURE PROVIDED TO PATIENTYES OTHERS AT HOME: . EDUCATION LEVEL OF EDUCATION:COLLEGE DIET: REGULAR. LANGUAGE LANGUAGES SPOKEN:BOTH PALAUAN AND LITHUANIAN DOMESTIC VIOLENCE DO YOU FEEL SAFE IN YOUR ENVIRONMENT?YES RECREATIONAL DRUG USE DRUG USE?NO LEARNING BARRIERS / SPECIAL NEEDS BARRIERS TO LEARNING?NO HEARING IMPAIRED?NO VISION IMPAIRED?YES COGNITIVELY IMPAIRED?NO :CORRECTIVE LENSES READINESS TO LEARN?YES LEARNING PREFERENCES?NO LEARNING CAPABILITIES PRESENT?YES EMOTIONAL BARRIERS?NO SPECIAL DEVICES?YES :CANE INFORMATION MANAGEMENT OFFICER NEEDED?NO PAIN CLINIC PFS, CLERGY, PUBLIC HEALTH REFERRALS HAS THE PATIENT BEEN EDUCATED REGARDING HIS/HER PLAN OF CARE?YES HAS THE PATIENT BEEN EDUCATED REGARDING PAIN, THE RISK FOR PAIN, THE IMPORTANCE OF EFFECTIVE PAIN MANAGEMENT, AND THE PAIN ASSESSMENT PROCESS?YES LATEX QUESTIONNAIRE LATEX ALLERGY : HAVE YOU EVER DEVELOPED ANY TYPE OF REACTION AFTER HANDLING LATEX PRODUCTS SUCH RUBBER GLOVES, CONDOMS, DIAPHRAGMS, BALLOONS, SOCKS, OR UNDERWEAR?NO LATEX ALLERGY : HAVE YOU EVER DEVELOPED ANY TYPE OF REACTION DURING OR AFTER DENTAL APPOINTMENT, VAGINAL/RECTAL EXAMINATION, SURGICAL PROCEDURE, OR ANY OTHER EXPOSURE?NO DATE ASKED : 04/10/2019 LATEX RISK : HAVE YOU EVER HAD ANY DIFFICULTY BREATHING OR HIVES AFTER EATING OR HANDLING ANY FRUITS, OR VEGETABLES; SUCH KIWI, BANANAS, STONE FRUITS, OR CHESTNUTSNO LATEX RISK : DO YOU HAVE A PREVIOUS PERSONAL HISTORY OF MORE THAN NINE SURGERIES, SPINA BIFIDA, OR REPEATED CATHERIZATIONS? NO LATEX RISK : ARE YOU FREQUENTLY EXPOSED TO LATEX PRODUCTS IN YOUR OCCUPATION?NO CAFFEINE CAFFEINE USE?YES 2 CUPS COFFEE DAILY ADVANCE DIRECTIVE ADVANCE DIRECTIVE DISCUSSED WITH PATIENT:YES PT DOES NOT HAVE ANY ADVANCED DIRECTIVES AND SHE DECLINES INFORAMTION ON HCP AT THIS TIME. ZOROASTRIANISM [id number] TAOIST MARITAL STATUS: . OCCUPATION: FT [employer]. SEXUAL HX HAD SEX IN THE LAST 12 MONTHS (VAGINAL, ORAL, OR ANAL)?YES WITHMEN ONLY PREVENTION STRATEGIES DISCUSSED:OTHER USE PROTECTION?NO LMP:1998 HAVE YOU EVER HAD AN STD?NO REVIEWED WITH PT 12/01/18 1116 BVPRE-SCREENING CALL DONE EM 07/16/19. HOSPITALIZATION/MAJOR DIAGNOSTIC PROCEDURE THYROID ISSUES PRIOR TO SX REVIEW OF SYSTEMS REVIEWED BY: PROVIDER: JEREMY SUAZO MD . CONSTITUTIONAL: ANY CHANGE IN YOUR MEDICAL CONDITION? NO . CHILLS NO . FEVER NO . INFECTION: DO YOU HAVE NEW INFECTIONS? NO . DO YOU HAVE HISTORY OF MRSA? NO . MUSCULOSKELETAL: ANY NEW PATTERNS OF PAIN OR NUMBNESS? YES, PT STATES THAT SHE IS HAVING PAIN RADIATING DOWN HAND, NUMBNESS, NEW SINCE INJURY AT WORK IN MARCH. . GASTROENTEROLOGY: ANY NEW CHANGE IN BOWEL CONTROL? NO . GENITOURINARY: ANY NEW CHANGE IN BLADDER CONTROL? NO . IS THERE A CHANCE YOU COULD BE ? NO . HEMATOLOGY/LYMPH: DO YOU TAKE ANY BLOOD THINNERS? (FOR EXAMPLE- COUMADIN, PLAVIX, AGGRENOX, PLATEL, PRADAXA, OR XARELTO) NO . WHEN WAS YOUR LAST DOSE? DATE: TIME: . NEUROLOGY: HAVE YOU FALLEN IN THE PAST 12 MONTHS? YES, PT STATES THAT SHE FELL WHILE AT HOME, INJURED KNEE, NO REPORT TO ED. . ANY NEW EXTREMITY NUMBNESS OR WEAKNESS? NO . CARDIOLOGY: DO YOU HAVE A PACEMAKER OR DEFIBRILLATOR? NO . RESPIRATORY: HAVE YOU BEEN SICK IN THE PAST WEEK? NO . FEVER NO . FLU LIKE SYMPTOMS? NO . COUGH NO . INTEGUMENTARY: DO YOU HAVE ANY RASHES OR OPEN SORES? NO . ALLERGIC/IMMUNO: ARE YOU ALLERGIC TO IV DYE? NO . ANY NEW ALLERGIES? NO . PSYCHIATRIC: DO YOU HAVE THOUGHTS OF HURTING YOURSELF OR SOMEONE ELSE? NO . ARE YOU ABUSED, NEGLECTED, OR IN AN UNSAFE ENVIRONMENT? NO . ENDOCRINOLOGY: ARE YOU DIABETIC? NO . OTHER: DO YOU NEED ANY PRESCRIPTIONS? NO . IF YES, PLEASE LIST: ____ . ANY NEW PROBLEMS WITH YOUR MEDICATIONS? NO . WHEN DID YOU LAST EAT? 07/17 7PM . WHEN DID YOU LAST DRINK? 07/18 6AM . WHAT DID YOU LAST DRINK? WATER . NAME OF PERSON DRIVING YOU HOME? JAMIE GARCIA . DO YOU HAVE ANY OTHER QUESTIONS OR CONCERNS PT PROCEDURE CANCELLED DUE TO RECENT FALL IN [place] AND PT STATES THAT SHE HAS PAIN NOW THAT RADIATES DOWN RIGHT ARM AND HAS NUMBNESS SENSATION IN RIGHT HAND. PT AMBULATED TO PRE-1 WITHOUT DIFFICULTY. GEORGETTE . VITAL SIGNS WT 239.4 LBS, HT 64 IN, BMI 41.09 INDEX, BP 139/84 MM HG, HR 77 /MIN, RR 16 /MIN, TEMP 97.4 F, OXYGEN SAT % 99, SAFE IN ENV? (Y/N) Y, REVIEWED BY: GEORGETTE. EXAMINATION GENERAL EXAMINATION: PATIENT IS ALERT O X 3 AND COOPERATIVE. RIGHT ARM IS WEAKER AT EXTENSION AND FLEXION. RIGHT HAND HELICOPTER TECHNICIAN IS REDUCED COMPARED WITH THE LEFT SIDE. EXTENSION OF THE NECK APPROXIMATELY 20 TO 30 DEGREES CAUSES DISCOMFORT OVER THE RIGHT ARM. RIGHT LATERAL ROTATION AND EXTENSION AT 10 DEGREES OF THE NECK CAUSES PAIN ON THE RIGHT SIDE. LEFT LATERAL ROTATION AND EXTENSION AT 25 TO 30 DEGREES CREATES DISCOMFORT ON THE RIGHT SIDE WELL. MRI OF THE CERVICAL SPINE DONE ON 12/13/2018 SHOWS DEGENERATIVE CHANGES AND FACET ARTHROPATHY CHANGES AT MULTIPLE LEVELS. ASSESSMENTS SPONDYLOSIS WITHOUT MYELOPATHY OR RADICULOPATHY, CERVICAL REGION - M47.812 (PRIMARY) CERVICAL DISC DISORDER WITH RADICULOPATHY, UNSPECIFIED CERVICAL REGION - M50.10 CERVICALGIA - M54.2 TREATMENT SPONDYLOSIS WITHOUT MYELOPATHY OR RADICULOPATHY, CERVICAL REGION CLINICAL NOTES: WE DISCUSSED SEVERAL ISSUES WITH MS. LEBRON'S PAIN MANAGEMENT CASE. DUE TO THE RECENT TRAUMA OVER THE PATIENT'S NECK, I WOULD LIKE TO ORDER FOR A NEW CERVICAL MRI TO CLARIFY THE NEW FINDINGS. THE PATIENT WILL FOLLOW UP WITH THE NURSE PRACTITIONER IN SEVERAL WEEKS TO GO OVER THE MRI RESULTS AND DISCUSS OPTIONS TO PROCEED WITH. INSTRUCTIONS WERE GIVEN, QUESTIONS WERE ANSWERED, PATIENT REPORTS UNDERSTANDING AND AGREES WITH THE PLAN. I, IVORY FERRERA, DOCUMENTED THE ABOVE INFORMATION ACTING A SCRIBE FOR DR. SUAZO. I HAVE REVIEWED THE ABOVE DOCUMENT, WRITTEN BY IVORY FLORENCE AND I VERIFY THAT IT IS ACCURATE. . [facility] SPINE, CERVICAL WITHOUT [id number] PROCEDURE CODES FA211 ESTABILISHED PATIENT [facility] CHARGE [id number] CURRENT MEDS W/DOSAGES DOCUMENTED [id number] PAIN ASSESS POS TOOL F/U PLAN DOC DISPOSITION & COMMUNICATION ELECTRONICALLY SIGNED BY JEREMY SUAZO MD, MD ON 07/24/2019 AT 02:24 PM EDT DISCLAIMER : THIS IS A VISIT SUMMARY EXTRACTED FROM THE [email or web address] CHART. IT IS NOT A COPY OF THE [email or web address] PROGRESS NOTE. MTDD
== END ==
LOC: M PAIN 08:30
PROVIDERS: ATTEND Anesthesiology
DX: M47.812 Spondylosis without myelopathy or radiculopathy, cervical region (principal); M50.10 Cervical disc disorder with radiculopathy, unspecified cervical region; M54.2 Cervicalgia

== ENCOUNTER → 2019-08-08 | Outpatient (CLI) | payer OTHER ==
[~2019-08-08] MED LIST changes: -ISOVUE-M 300 61% 15ML VIAL (Q9967) As Ordered ONE; -LIDOCAINE 1% SDV INJ 30 ML VIAL As Ordered ONE; -methylPREDNISolone SUSP 40 MG/ML (DEPO-medrol) VIAL (J1030) As Ordered ONE
--- NOTE | 2019-08-08 11:37 | REP ---
MRI CERVICAL SPINE WITHOUT CONTRAST: HISTORY: Neck pain. Comparison study December 13, 2018. TECHNIQUE: Sagittal and axial T1 and T2-weighted scans are acquired in the usual fashion with and without fat saturation. Sequences include spin echo, turbo spin-echo, and STIR imaging sequences. MRI FINDINGS: There is straightening of the normal cervical lordosis, more so than on the prior study. Cervical vertebral body heights are preserved. Alignment is otherwise normal. There is no bony destructive lesion evident. The cervical cord is normal in coarse, caliber and signal intensity on T1 and T2-weighted scans. Axial and sagittal images at the C2-3 level demonstrate minimal right central disc bulging. At C3-C4, there is mild disc space narrowing and minimal diffuse disc bulging. Early uncovertebral spurring is seen bilaterally. No significant foraminal narrowing. At C4-C5, there is posterior osteophytic ridging and diffuse disc bulging again noted effacing the ventral subarachnoid space slightly. No cord compression or canal stenosis is seen. Mild bilateral uncovertebral spurring is seen at C4-5. These changes are stable from the prior study. At C5-C6, there is uncovertebral spurring bilaterally, left more so than right with mild neural foraminal narrowing. Mild diffuse disc bulging is present. These findings are unchanged from the comparison study of December 13, 2018. At C6-C7, there is central disc bulging and early bilateral uncovertebral spurring unchanged. Neural foramina appear adequate. The C7-T1 level is unremarkable. IMPRESSION: Degenerative spondylosis changes. There is slightly increased straightening. No other change from comparison study December 13, 2018. Left-sided foraminal narrowing at C5-6 is again seen. Early uncovertebral spurring noted at C3-4 and bilateral uncovertebral spurring noted at C4-5. Electronically Signed by Perez Beltrán MD 08/08/2019 11:46 A
== END ==
LOC: M RAD 09:48
PROVIDERS: ATTEND Anesthesiology
DX: M25.78 Osteophyte, vertebrae (principal); M50.322 Other cervical disc degeneration at C5-C6 level; M50.223 Other cervical disc displacement at C6-C7 level

== ENCOUNTER → 2019-08-13 | Outpatient (CLI) | payer OTHER ==
--- NOTE | 2019-08-15 00:35 | ECWPNPC ---
PATIENT NAME: GLADYS LEBRON SCOT : 1970 GENDER: FEMALE VISIT DATE: 08/13/2019 DISCHARGE DATE: 08/13/19 1027 VISIT LOCKED DATE TIME: PHYSICIAN: LES ADHIKARI RESOURCE: LES ADHIKARI REASON FOR APPOINTMENT 1. MRI REVIEW-MRI WAS DONE AT [facility] HISTORY OF PRESENT ILLNESS HISTORY OF PRESENT ILLNESS: PAIN THE PATIENT DESCRIBES THE PAINDURING THE LAST MONTH SEVERITY - PAIN SCORE OF9/10 LOCATIONSNECK QUALITYACHING , SHARP DURATIONCONTINUOUS, ALL DAY 48-YEAR-OLD FEMALE IN FOR CHRONIC PAIN FOLLOW-UP. SHE HAD A RECENT CERVICAL MRI WHICH WILL BE REVIEWED WITH PATIENT TODAY. SHE RATES HER PAIN CURRENTLY AT A 9 OUT OF 10 AND DESCRIBES IT ACHING, AND SHARP. SHE DOES ADMIT TO SOME RADICULAR SYMPTOMS RADIATING DOWN HER RIGHT ARM. FALL RISK SCREENING: SCREENING :ONE FALL WITHOUT INJURY IN THE PAST YEAR CURRENT MEDICATIONS TAKING ZONISAMIDE 100 MG CAPSULE 1 CAPSULE ORALLY TWICE A DAY, NOTES: 07/17 7PM TAKING MAXALT 10 MG TABLET 1 TABLET ORALLY PRN, NOTES: 07/17 2PM TAKING PEPCID 40 MG TABLET 1 TABLET AT BEDTIME ORALLY ONCE A DAY, NOTES: 07/17 7PM TAKING DULOXETINE HCL 30 MG CAPSULE DELAYED RELEASE PARTICLES 1 CAPSULE ORAL THREE TIMES DAILY, NOTES: 07/17 7PM TAKING GABAPENTIN 300 MG CAPSULE 1 CAPSULE ORALLY BEFORE BEDTIME, NOTES: 07/17 7PM TAKING VOLTAREN 1 % GEL 2GMS TO LEFT KNEE, FRONT, BACK TRANSDERMAL FOUR TIMES DAILY NEEDED, NOTES: 07/17 8PM TAKING GABAPENTIN 100 MG CAPSULE 2 CAPSULE ORALLY IN AM, 2 CAPSULES IN AFTERNOON, NOTES: 07/17 12NOON TAKING LEVOTHYROXINE SODIUM 150 MCG TABLET 1 TABLET IN THE MORNING ON AN EMPTY STOMACH ORALLY ONCE A DAY, NOTES: 07/18 6AM MEDICATION LIST REVIEWED AND RECONCILED WITH THE PATIENT PAST MEDICAL HISTORY SPONDYLOLITHESIS SPINAL STENOSIS THYROID CANCER 2008- SX FOR REMOVAL CERVICAL CANCER- 1998- PARTIAL HYSTER OVARIAN CYST LEFT OVARY MIGRAINES-TOPAMAX IN THE PAST LEFT KNEE, BONE ON BONE ARTHRITIS, NEED KNEE REPLACEMENT HYPOTHYROIDISM-S/P THYROIDECTOMY LUMBAGO WITH SCIATICA, LEFT SIDE LUMBAGO WITH SCIATICA, RIGHT SIDE MAMMOGRAM 08/2018-NORMAL 8 YEAR ASCVD RISK 3.9% NECK QMRI-LOH-PUL OF BRAIN, EMG FOLLOWS C DR. LARSEN CARPAL TUNNEL SYNDROME-EMG FOLLOWS Rosita LARSEN ALLERGIES N.K.D.A. SURGICAL HISTORY THYROIDECTOMY 2009 PARTIAL HYSTERECTOMY- [place] 1998 FAMILY HISTORY FATHER: ALIVE 72 YRS, HTN, ARTHRITIS, DIAGNOSED WITH DIABETES MOTHER: ALIVE 71 YRS, HYPOTHYROIDISM, DEPRESSION, HTN SIBLINGS: ALIVE 51 YRS, OBESITY SON(S): ALIVE, ADHD DAUGHTER(S): ALIVE PATERNAL GRAND FATHER: 60 YRS, ALCOHOLISM PATERNAL GRAND MOTHER: 70 YRS, CANCER MATERNAL GRAND FATHER: 70 YRS, TYPE II DIABETES, HTN, MULTIPLE STROKES, DIABETES MATERNAL GRAND MOTHER: 40 YRS, OVARIAN CANCER, 1 SISTER(S) . 2 SON(S) , 2 DAUGHTER(S) . PT REPORTS STRONG FAMILY HISTORY OF COLON CANCER. \NPT REPORTS STRONG FAMIY HISTORY OF DM ON MOTHER SIDE. SOCIAL HISTORY GENERAL: TOBACCO USE ARE YOU A:CURRENT SMOKER HOW OFTEN DO YOU SMOKE CIGARETTES?SOME DAYS, BUT NOT EVERY DAY HOW SOON AFTER YOU WAKE UP DO YOU SMOKE YOUR FIRST CIGARETTE?AFTER 60 MIN HOW MANY CIGARETTES A DAY DO YOU SMOKE?5 OR LESS ARE YOU INTERESTED IN QUITTING?READY TO QUIT PATIENT COUNSELED ON THE DANGERS OF TOBACCO USE AND URGED TO QUIT:02/28/2019 COUNSELED THE PATIENT ON TOBACCO USE, CESSATION [id number]/02/2020 PREVIOUS QUIT ATTEMPTS?YES, WITHIN THE LAST 6 MONTHS. HIV / HEP-C SCREENING HIV TEST OFFERED TO PATIENT:YES DATE OFFERED:08/15/2018 TEST ACCEPTED:NO HEP-C TEST OFFERED TO PATIENT:YES DATE OFFERED:08/15/2018 REASON:PATIENT DECLINED TEST ACCEPTED:NO REASON:PATIENT DECLINED BROCHURE PROVIDED TO PATIENTYES OTHERS AT HOME: . EDUCATION LEVEL OF EDUCATION:COLLEGE DIET: REGULAR. LANGUAGE LANGUAGES SPOKEN:BOTH DANISH AND SINHALA DOMESTIC VIOLENCE DO YOU FEEL SAFE IN YOUR ENVIRONMENT?YES RECREATIONAL DRUG USE DRUG USE?NO LEARNING BARRIERS / SPECIAL NEEDS BARRIERS TO LEARNING?NO HEARING IMPAIRED?NO VISION IMPAIRED?YES COGNITIVELY IMPAIRED?NO :CORRECTIVE LENSES READINESS TO LEARN?YES LEARNING PREFERENCES?NO LEARNING CAPABILITIES PRESENT?YES EMOTIONAL BARRIERS?NO SPECIAL DEVICES?YES :CANE TRIBAL DELEGATE NEEDED?NO PAIN CLINIC PFS, CLERGY, PUBLIC HEALTH REFERRALS HAS THE PATIENT BEEN EDUCATED REGARDING HIS/HER PLAN OF CARE?YES HAS THE PATIENT BEEN EDUCATED REGARDING PAIN, THE RISK FOR PAIN, THE IMPORTANCE OF EFFECTIVE PAIN MANAGEMENT, AND THE PAIN ASSESSMENT PROCESS?YES LATEX QUESTIONNAIRE LATEX ALLERGY : HAVE YOU EVER DEVELOPED ANY TYPE OF REACTION AFTER HANDLING LATEX PRODUCTS SUCH RUBBER GLOVES, CONDOMS, DIAPHRAGMS, BALLOONS, SOCKS, OR UNDERWEAR?NO LATEX ALLERGY : HAVE YOU EVER DEVELOPED ANY TYPE OF REACTION DURING OR AFTER DENTAL APPOINTMENT, VAGINAL/RECTAL EXAMINATION, SURGICAL PROCEDURE, OR ANY OTHER EXPOSURE?NO DATE ASKED : 04/10/2019 LATEX RISK : HAVE YOU EVER HAD ANY DIFFICULTY BREATHING OR HIVES AFTER EATING OR HANDLING ANY FRUITS, OR VEGETABLES; SUCH KIWI, BANANAS, STONE FRUITS, OR CHESTNUTSNO LATEX RISK : DO YOU HAVE A PREVIOUS PERSONAL HISTORY OF MORE THAN NINE SURGERIES, SPINA BIFIDA, OR REPEATED CATHERIZATIONS? NO LATEX RISK : ARE YOU FREQUENTLY EXPOSED TO LATEX PRODUCTS IN YOUR OCCUPATION?NO CAFFEINE CAFFEINE USE?YES 2 CUPS COFFEE DAILY ADVANCE DIRECTIVE ADVANCE DIRECTIVE DISCUSSED WITH PATIENT:YES PT DOES NOT HAVE ANY ADVANCED DIRECTIVES AND SHE DECLINES INFORAMTION ON HCP AT THIS TIME. WORSHIP [id number] JAIN MARITAL STATUS: . OCCUPATION: [employer]. SEXUAL HX HAD SEX IN THE LAST 12 MONTHS (VAGINAL, ORAL, OR ANAL)?YES WITHMEN ONLY PREVENTION STRATEGIES DISCUSSED:OTHER USE PROTECTION?NO LMP:1998 HAVE YOU EVER HAD AN STD?NO HOSPITALIZATION/MAJOR DIAGNOSTIC PROCEDURE THYROID ISSUES PRIOR TO SX REVIEW OF SYSTEMS REVIEWED BY: PROVIDER: BRANDIE MCKEON . CONSTITUTIONAL: ANY CHANGE IN YOUR MEDICAL CONDITION? NO . CHILLS NO . FEVER NO . INFECTION: DO YOU HAVE NEW INFECTIONS? NO . DO YOU HAVE HISTORY OF MRSA? NO . MUSCULOSKELETAL: ANY NEW PATTERNS OF PAIN OR NUMBNESS? NO . GASTROENTEROLOGY: ANY NEW CHANGE IN BOWEL CONTROL? NO . GENITOURINARY: ANY NEW CHANGE IN BLADDER CONTROL? NO . IS THERE A CHANCE YOU COULD BE ? NO . HEMATOLOGY/LYMPH: DO YOU TAKE ANY BLOOD THINNERS? (FOR EXAMPLE- COUMADIN, PLAVIX, AGGRENOX, PLATEL, PRADAXA, OR XARELTO) NO . WHEN WAS YOUR LAST DOSE? DATE: TIME: . NEUROLOGY: HAVE YOU FALLEN IN THE PAST 12 MONTHS? YES, 6 MONTHS AGO . ANY NEW EXTREMITY NUMBNESS OR WEAKNESS? NO . CARDIOLOGY: DO YOU HAVE A PACEMAKER OR DEFIBRILLATOR? NO . RESPIRATORY: HAVE YOU BEEN SICK IN THE PAST WEEK? NO . FEVER NO . FLU LIKE SYMPTOMS? NO . COUGH NO . INTEGUMENTARY: DO YOU HAVE ANY RASHES OR OPEN SORES? NO . ALLERGIC/IMMUNO: ARE YOU ALLERGIC TO IV DYE? NO . ANY NEW ALLERGIES? NO . PSYCHIATRIC: DO YOU HAVE THOUGHTS OF HURTING YOURSELF OR SOMEONE ELSE? NO . ARE YOU ABUSED, NEGLECTED, OR IN AN UNSAFE ENVIRONMENT? NO . ENDOCRINOLOGY: ARE YOU DIABETIC? NO . OTHER: DO YOU NEED ANY PRESCRIPTIONS? NO . IF YES, PLEASE LIST: ____ . ANY NEW PROBLEMS WITH YOUR MEDICATIONS? NO . WHEN DID YOU LAST EAT? ____ . WHEN DID YOU LAST DRINK? ____ . WHAT DID YOU LAST DRINK? ____ . NAME OF PERSON DRIVING YOU HOME? ____ . DO YOU HAVE ANY OTHER QUESTIONS OR CONCERNS YES, DISCUSS MRI . VITAL SIGNS WT 238.0 LBS, HT 64 IN, BMI 40.85 INDEX, BP 132/69 MM HG, HR 80 /MIN, RR 16 /MIN, TEMP 96.8 F, OXYGEN SAT % 100%, NA INITIALS AW [id number] ASUMADU DEBT COUNSELOR. EXAMINATION GENERAL EXAMINATION: GENERALNO ACUTE DISTRESS, WELL NOURISHED AND HYDRATED. PSYCHAPPROPRIATE MOOD AND AFFECT . NECK:POINT TENDER ALONG CERVICAL SPINE, SURROUNDING SKIN SHOWS NO ERYTHEMA, ECCHYMOSIS, INCREASED WARMTH, AND/OR SKIN ERUPTIONS NOTED. PATIENT DOES ENDORSE INCREASED PAIN ON THE RIGHT SIDE OF HER NECK WHEN ASKED LIFT ARMS AGAINST RESISTANCE. . LUNGS:CLEAR TO AUSCULTATION BILATERALLY, NO WHEEZES, RHONCHI, RALES. HEART:NO MURMURS, REGULAR RATE AND RHYTHM. ASSESSMENTS CERVICAL DISC DISORDER WITH RADICULOPATHY, UNSPECIFIED CERVICAL REGION - M50.10 (PRIMARY) TREATMENT CERVICAL DISC DISORDER WITH RADICULOPATHY, UNSPECIFIED CERVICAL REGION NOTES: PJ C7-T1. CLINICAL NOTES: 48-YEAR-OLD FEMALE IN FOR CHRONIC PAIN FOLLOW-UP. MRI WAS REVIEWED WITH PATIENT. GIVEN PRESENTING SYMPTOMS AND RESULTS OF PHYSICAL EXAMINATION RECOMMENDED PJ C7-T1 WITH POST PROCEDURAL FOLLOW-UP. PATIENT HAS EXPRESSED UNDERSTANDING OF AND WAS IN AGREEMENT WITH TREATMENT PLAN. GIVEN TIME TO ASK QUESTIONS AND EXPRESS CONCERNS. OTHERS NOTES: CERVICAL EPIDURAL INJECTION MATERIAL WAS PRINTED. PROCEDURE CODES FA211 ESTABILISHED PATIENT [facility] CHARGE DISPOSITION & COMMUNICATION FOLLOW UP POSTPROCEDURE (REASON: PJ C7-T1) ELECTRONICALLY SIGNED BY ESME PURVIS ON 08/14/2019 AT 08:49 AM EDT DISCLAIMER : THIS IS A VISIT SUMMARY EXTRACTED FROM THE [employer] CHART. IT IS NOT A COPY OF THE [employer] PROGRESS NOTE. ARMIN
== END ==
LOC: M PAIN 09:45
PROVIDERS: ATTEND Family Medicine
DX: M50.10 Cervical disc disorder with radiculopathy, unspecified cervical region (principal); E89.0 Postprocedural hypothyroidism; F17.210 Nicotine dependence, cigarettes, uncomplicated; Z79.899 Other long term (current) drug therapy

== ENCOUNTER → 2019-09-06 | Outpatient (CLI) | payer OTHER | LOC: M PLALAB 15:38 | PROVIDERS: ATTEND Physical Medicine & Rehabilitation | DX: M51.27 Other intervertebral disc displacement, lumbosacral region (principal) ==

== ENCOUNTER 2019-09-18 15:35 | Emergency (ER) | payer OTHER ==
[~2019-09-18] VITALS: Ht 162.6 cm; Wt 105.3 kg
[2019-09-18 15:35] VITALS: BP 152/91
[~2019-09-18 15:35] MED LIST changes: -DICL1GEL3
[2019-09-18] MEDS ORDERED: DICL1GEL3 (15:44)
[2019-09-18] MEDS ORDERED: NAPROXEN 250 MG TAB PO ONE (16:45)
--- NOTE | 2019-09-18 17:32 | REP ---
CT LUMBAR SPINE WITHOUT CONTRAST: HISTORY: Injury in a fall down stairs. Tender lumbosacral region. Comparison CT study of the lumbar spine is from March 06, 2019. TECHNIQUE: Helical scanning is acquired and 4 mm axial images are reformatted. Coronal and sagittal MPR images are generated. CT FINDINGS: Preliminary digital distribution operation supervisor radiographs are unremarkable. On CT images, lumbar vertebral body heights are preserved. No fracture or collapse is seen. There is degenerative disc disease at each level from L2-3 through L5-S1 with disc space narrowing and some posterior osteophytic ridging. A 2.7 cm perineural cyst is seen in the mid sacrum. There is generalized disc bulging and osteophytic ridging at L5-S1. Mild facet arthropathy is seen bilaterally at L5-S1 and L4-5. No spinal stenosis or foraminal narrowing is seen. Mild diffuse disc bulging is seen at L3-4. No intraspinal or paraspinal hematoma is appreciated. IMPRESSION: Degenerative spondylosis changes. No traumatic abnormality noted. No significant change from March 06, 2019 prior study. Electronically Signed by Perez Beltrán MD 09/19/2019 10:41 A
--- NOTE | 2019-09-18 17:41 | REP ---
AP PELVIS AND TWO VIEW RIGHT HIP: REASON: Trauma. AP PELVIS: A single AP view of the pelvis was performed. The hip joint spaces are symmetric and relatively well maintained. There is no acute fracture or destructive osseous lesion. RIGHT HIP: FINDINGS: The joint space is symmetric and relatively well maintained. There is no acute fracture or dislocation. Electronically Signed by Raman Kendall DO 09/19/2019 11:56 A
== END 2019-09-18 16:52 | disposition home or self-care (01) ==
LOC: M ED 15:35
DX: M25.551 Pain in right hip (principal); M54.5 Low back pain; M47.816 Spondylosis without myelopathy or radiculopathy, lumbar region; W10.8XXA Fall (on) (from) other stairs and steps, initial encounter; Y92.098 Other place in other non-institutional residence as the place of occurrence of the external cause; G43.909 Migraine, unspecified, not intractable, without status migrainosus; E03.9 Hypothyroidism, unspecified; Z79.899 Other long term (current) drug therapy

== ENCOUNTER → 2019-09-18 | Outpatient (REF) | payer OTHER ==
[~2019-09-18] MED LIST changes: +DICL1GEL3
[2019-09-18 18:34] LABS: APPEARANCE, URINE CLEAR (CLEAR); BACTERIA, URINE AUTO NEGATIVE (NEGATIVE); BILIRUBIN, URINE AUTO NEGATIVE (NEGATIVE); BLOOD, URINE BLOOD 1+ (NEGATIVE); COLOR, URINE STRAW (YELLOW); GLUCOSE, URINE (UA) AUTO NEGATIVE (NEGATIVE); KETONE, URINE AUTO NEGATIVE (NEGATIVE); LEUKOCYTE ESTERASE, URINE AUTO NEGATIVE (NEGATIVE); NITRITE, URINE AUTO NEGATIVE (NEGATIVE); PROTEIN, URINE AUTO NEGATIVE (NEGATIVE); RBC, URINE AUTO 0 /HPF (0-3); SPECIFIC GRAVITY URINE AUTO 1.002 (1.002-1.035); SQUAMOUS EPITHELIAL CELL UR AU 0 /HPF (0-6); UROBILINOGEN, URINE AUTO 0.2 mg/dL (0.0-2.0); WBC, URINE AUTO 0 /HPF (0-3)
== END ==
LOC: M SMT 17:02
PROVIDERS: ATTEND Nurse Practitioner Family
DX: R32 Unspecified urinary incontinence (principal)

== ENCOUNTER → 2019-09-20 | Outpatient (REF) | payer OTHER ==
[~2019-09-20] MED LIST changes: +DICL1GEL3
[2019-09-20 14:40] LABS: FREE T4 1.51 NG/DL (0.76-1.46); THYROID STIMULATING HORMONE 0.013 uIU/ML (0.358-3.740)
== END ==
LOC: M SFHCPLAZ 12:00
PROVIDERS: ATTEND Physician Assistant Medical
DX: E89.0 Postprocedural hypothyroidism (principal)

== ENCOUNTER → 2019-11-05 | Outpatient (CLI) | payer OTHER ==
[2019-11-05 19:56] LABS: FREE T4 1.46 NG/DL (0.76-1.46); THYROID STIMULATING HORMONE 0.02 uIU/ML (0.358-3.740)
== END ==
LOC: M PLALAB 14:32
PROVIDERS: ATTEND Physician Assistant Medical
DX: E89.0 Postprocedural hypothyroidism (principal)

== ENCOUNTER 2020-01-13 13:52 | Emergency (ER) | payer OTHER ==
[~2020-01-13] VITALS: Ht 162.6 cm; Wt 103.8 kg
[2020-01-13 13:52] VITALS: BP 140/83
[2020-01-13] MEDS ORDERED: OXYB10TA23 PO (13:58)
[2020-01-13] MEDS ORDERED: BACL5TAB2 PO (13:58)
[2020-01-13] MEDS ORDERED: BOOSTRIX/ADACEL VACCINE (DIPHTH/PERTUSS/ACELL/TETANUS) 0.5ML SYR IM ONE (14:30)
[2020-01-13] MEDS ORDERED: LIDOCAINE 1% MDV 20ML VIAL INFIL ONE (15:00)
[2020-01-13] MEDS ORDERED: ACETAMINOPH W/CODEINE #3 TAB UD PO ONE (15:00)
[2020-01-13] MEDS ORDERED: KEFL500C17 PO (15:42)
[2020-01-13] MEDS ORDERED: TYLETAB14 PO (15:42)
--- NOTE | 2020-02-08 15:12 | REP ---
LEFT FOURTH DIGITS CLINICAL: Crush injury. TECHNIQUE: AP, lateral, and bilateral oblique views of the left fourth digit. FINDINGS: There is a nondisplaced fracture involving the distal phalanx/terminal tuft with overlying soft tissue injury. IMPRESSION: Nondisplaced fracture of the distal phalanx. MTDD
[2020-02-12] MEDS ORDERED: GABA-843 PO (13:10)
[2020-02-12] MEDS ORDERED: FAMO40TA3 PO (13:10)
[2020-02-12] MEDS ORDERED: OMEP-221 PO (13:10)
[2020-02-12] MEDS ORDERED: TIZA2CAP PO (13:10)
[2020-02-12] MEDS ORDERED: LEVO125T4 PO (13:10)
== END 2020-01-13 15:55 | disposition home or self-care (01) ==
LOC: M ED 13:52
DX: S62.662B Nondisplaced fracture of distal phalanx of right middle finger, initial encounter for open fracture (principal); S60.152A Contusion of left little finger with damage to nail, initial encounter; W23.0XXA Caught, crushed, jammed, or pinched between moving objects, initial encounter; Y92.89 Other specified places as the place of occurrence of the external cause; Z79.899 Other long term (current) drug therapy; F17.210 Nicotine dependence, cigarettes, uncomplicated

== ENCOUNTER → 2020-02-01 | Outpatient (CLI) | payer OTHER ==
[~2020-02-01] MED LIST changes: +BACL5TAB2 PO; +FAMO40TA3 PO; +KEFL500C17 PO; +LEVO125T4 PO; +OMEP-221 PO; +OXYB10TA23 PO; +TIZA2CAP PO; +TYLETAB14 PO
== END ==
LOC: M PAIN 11:32
PROVIDERS: ATTEND Family Medicine
DX: M47.817 Spondylosis without myelopathy or radiculopathy, lumbosacral region (principal)

== ENCOUNTER → 2020-02-13 | Outpatient (CLI) | payer OTHER | LOC: M LABSMTC 12:25 | PROVIDERS: ATTEND Anesthesiology | DX: Z01.812 Encounter for preprocedural laboratory examination (principal); Z20.828 Contact with and (suspected) exposure to other viral communicable diseases | CPT/HCPCS: C9803; U0003 ==

== ENCOUNTER 2020-02-18 11:54 | Day surgery (SDC) | payer OTHER ==
[~2020-02-18] VITALS: Ht 162.6 cm; Wt 100.7 kg
[2020-02-18] MEDS ORDERED: NS 1,000 ML IV ONE (13:00)
[2020-02-18] MEDS ORDERED: LIDOCAINE 2% 100MG/5ML SDV (FOR ANES.) As Ordered ONE (13:57)
[2020-02-18] MEDS ORDERED: propofoL 200 MG/20 ML VIAL As Ordered ONE (13:57)
--- NOTE | 2020-02-18 14:09 | ROOR ---
Patient Name: Sherice Santiago Procedure Date: 02/18/2020 1:45 PM Date of : 1970 Age: 49 Room: [facility] Gender: Female Note Status: Finalized Procedure: Total Colonoscopy to Cecum Indications: Screening for colorectal malignant neoplasm Providers: Carlitos Suazo MD Referring MD: Lizzie SCHAFFER Requesting Provider: Medicines: Monitored Anesthesia Care Complications: No immediate complications. Procedure: Pre-Anesthesia Assessment: - The heart rate, respiratory rate, oxygen saturations, blood pressure, adequacy of pulmonary ventilation, and response to care were monitored throughout the procedure. The Colonoscope was introduced through the anus and advanced to the cecum, identified by appendiceal orifice and ileocecal valve. The colonoscopy was performed without difficulty. The patient tolerated the procedure well. The quality of the bowel preparation was good. Findings: The perianal and digital rectal examinations were normal. Non-bleeding internal hemorrhoids were found during retroflexion. The hemorrhoids were small and Grade I (internal hemorrhoids that do not prolapse). No other significant abnormalities were identified in a careful examination of the remainder of the colon. The exam was otherwise without abnormality on direct and retroflexion views. Impression: - Non-bleeding internal hemorrhoids. - The examination was otherwise normal on direct and retroflexion views. - No specimens collected. - The exam was otherwise normal to the cecum. Recommendation: - Patient has a contact number available for emergencies. The signs and symptoms of potential delayed complications were discussed with the patient. Return to normal activities tomorrow. Written discharge instructions were provided to the patient. - High fiber diet. - Discharge patient to home. - Continue present medications. - Repeat colonoscopy in 10 years for screening purposes. - Return to referring physician. - The findings and recommendations were discussed with the patient. Carlitos Suazo MD Carlitos Suazo MD 02/18/2020 2:09:08 PM Electronically signed by Carlitos Suazo MD Number of Addenda: 0 Note Initiated On: 02/18/2020 1:45 PM Estimated Blood Loss: Estimated blood loss: none.
[2020-02-18 14:30] VITALS: BP 144/83
== END 2020-02-18 14:44 | disposition home or self-care (01) ==
LOC: M OPP 11:54
PROVIDERS: ATTEND Internal Medicine Gastroenterology
DX: Z12.11 Encounter for screening for malignant neoplasm of colon (principal); K64.0 First degree hemorrhoids; E03.9 Hypothyroidism, unspecified; R12 Heartburn; F41.9 Anxiety disorder, unspecified; F32.9 Major depressive disorder, single episode, unspecified; F17.210 Nicotine dependence, cigarettes, uncomplicated; Z79.899 Other long term (current) drug therapy

== ENCOUNTER → 2020-02-20 | Outpatient (CLI) | payer OTHER | LOC: M LABSMTC 11:02 | PROVIDERS: ATTEND Anesthesiology | DX: Z11.59 Encounter for screening for other viral diseases (principal) ==

== ENCOUNTER → 2020-06-12 | Outpatient (CLI) | payer OTHER ==
[~2020-06-12] MED LIST changes: +GABA-282 PO; -GABA-843 PO
--- NOTE | 2020-06-12 18:32 | REPPI ---
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 TECHNIQUE: AP, lateral, bilateral oblique views right wrist. FINDINGS: The carpal bones, surrounding osseous structures, soft tissues, and joint spaces are normal. There is no evidence for acute fracture or dislocation. No subcutaneous emphysema or radiodense foreign body. IMPRESSION: Normal age-appropriate right wrist series. No acute fracture or dislocation. <Electronically signed by Dakota Tyler > 06/12/20 [id number]
--- NOTE | 2020-06-12 18:33 | REPPI ---
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 TECHNIQUE: AP, lateral, bilateral oblique views right hand. FINDINGS: The osseous structures and joint spaces are intact and normal. There is no evidence for acute fracture or dislocation. Surrounding soft tissues are unremarkable. No significant degenerative changes appreciated. No subcutaneous emphysema or radiodense foreign body. IMPRESSION: Age-appropriate right hand series. <Electronically signed by Dakota Tyler > 06/12/20 [id number]
== END ==
LOC: M PLAIMG 13:47
PROVIDERS: ATTEND Physician Assistant Medical
DX: M67.331 Transient synovitis, right wrist (principal)

== ENCOUNTER → 2020-06-12 | Outpatient (REF) | payer OTHER ==
[2020-06-12 15:57] LABS: C REACTIVE PROTEIN QUANTITATIV 0.98 MG/DL (0.00-0.30); FREE T4 1.04 NG/DL (0.76-1.46); RHEUMATOID FACTOR QUANT < 10.0 IU/ML (<15.0); THYROID STIMULATING HORMONE 0.904 uIU/ML (0.358-3.740)
[2020-06-16 02:08] LABS: ANA (HEP2) Negative (.); CYCLIC CITRULLINATED PEPTIDE 7 units (0-19)
== END ==
LOC: M SFHCPLAZ 13:46
PROVIDERS: ATTEND Physician Assistant Medical
DX: M67.331 Transient synovitis, right wrist (principal); E89.0 Postprocedural hypothyroidism

== ENCOUNTER → 2020-08-18 | Outpatient (REF) | payer OTHER ==
[2020-08-18 14:28] LABS: C REACTIVE PROTEIN QUANTITATIV 1.05 MG/DL (0.00-0.30); MAGNESIUM LEVEL 2.3 MG/DL (1.8-2.4); PHOSPHORUS LEVEL 3.3 MG/DL (2.5-4.9); TOTAL 25(OH) VITAMIN D 17.5 NG/ML (30.0-100.0)
== END ==
LOC: M SFHCRHEU 10:18
PROVIDERS: ATTEND Internal Medicine
DX: M79.10 Myalgia, unspecified site (principal); R79.82 Elevated C-reactive protein (CRP)